=== PATIENT | male | born 1950 | race African-American/Black ===

== ENCOUNTER 2017-01-22 08:03 | Emergency (ER) | payer OTHER ==
[2017-01-22 08:07] VITALS: BP 143/76; PULSE 80; TEMP 97.6; BMI 41.3
--- NOTE | 2017-01-22 09:41 | PDOC ---
History of Present Illness - General Chief Complaint: Pain, Acute Stated Complaint: FALL/ RT KNEE PAIN Time Seen by Provider: 01/22/17 08:22 - History of Present Illness Initial Comments: 01/22/17 08:23 Pt. is a 66 y/o M presenting with a old abrasion to the ED for evaluation. Pt states that he fell approximately one month ago and had a scraped knee. The scrape then developed into a soft mass on his R knee. He presents today because it is more irritating than it has been. Denies pain, drainage from the wound, fevers, chills, redness around the area. Past History - Past Medical History Allergies/Adverse Reactions: Allergies Allergy/AdvReac Type Severity Reaction Status Date / Time No Known Drug Allergies Allergy Verified 01/22/17 08:07 Home Medications: Ambulatory Orders Amlodipine Besylate [Norvasc -] 2.5 mg PO HS 03/09/14 Atorvastatin Ca [Lipitor] 20 mg PO HS 03/09/14 Ramipril 10 mg PO HS 03/09/14 Albuterol Sulfate [Proair Hfa -] 1 - 2 inh PO PRN PRN 05/20/14 Ipratropium [place] [Atrovent Hfa] 12.9 gm IH PRN PRN 10/26/14 Aspirin [ASA -] 81 mg PO DAILY #0 05/05/15 Budesonide/Formeterol Fumarate [SYMBICORT 160/4.5mcg -] 1 inh IH PRN PRN Anemia: No Asthma: Yes Cancer: No Cardiac Disorders: Yes (ASHD, [place]) CVA: No COPD: Yes CHF: No Dementia: No Diabetes: Yes GI Disorders: No (COLON POLYPS,DIVERTICULOSIS,DIVERTICULITIS) Disorders: No HTN: Yes Hypercholesterolemia: Yes Liver Disease: No Seizures: No Thyroid Disease: No - Surgical History Abdominal Surgery: Yes (UMBILICAL HERNIA REPAIR,FISTULA RESECTION) Appendectomy: No Cardiac Surgery: No (CARDIAC CATHERIZATION-SEVERAL TIMES) Cholecystectomy: No Lung Surgery: No Neurologic Surgery: No Orthopedic Surgery: Yes (ELVIRA HIP SUIRGERY; ARTHROSCOPIC LEFT KNEE) - Immunization History Immunization Up to Date: Yes - Psycho/Social/Smoking Cessation Hx Anxiety: No Suicidal Ideation: No Smoking Status: No Smoking History: Never smoked Have you smoked in the past 12 months: No Number of Cigarettes Smoked Daily: 0 If you are a former smoker, when did you quit?: OVER 20 YRS AGO Information on smoking cessation initiated: No Hx Alcohol Use: No Drug/Substance Use Hx: No Substance Use Type: None Hx Substance Use Treatment: Yes *Physical Exam - Vital Signs Last Vital Signs Temp Pulse Resp BP Pulse Ox 97.6 F 80 18 143/76 99 01/22/17 08:05 01/22/17 08:05 01/22/17 08:05 01/22/17 08:05 01/22/17 08:05 - Physical Exam General Appearance: Yes: Appropriately Dressed, Mild Distress Vascular Pulses: Dorsalis-Pedis (R): 2+, Doralis-Pedis (L): 2+ Musculoskeletal: positive: Normal Inspection. negative: Decreased Range of Motion Extremity: positive: Normal Capillary Refill, Normal Range of Motion, Tender (1 cm semi-fluctuant soft tissue mass) Integumentary: positive: Normal Color, Dry, Warm, Other (1 cm round semi- fluctuant soft tissue mass on the R knee) Neurologic: positive: Fully Oriented, Alert, Normal Mood/Affect, Normal Response , Motor Strength 5/5 Medical Decision Making - Medical Decision Making 01/22/17 09:00 18 gauge needle used to aspirate the semifluctuant mass. Less than 1 cm of serous fluid drained. Sent for culture. Wound decompressed and keloid remains. Pt. states he feels better and is ready for discharge. Understands discharge instructions and told to f/u with PCP. *DC/Admit/Observation/Transfer Diagnosis at time of Disposition: Granulation tissue - Discharge Dispostion Admit: No - Referrals Referrals: Mireya Dupont MD [Primary Care Provider] - - Patient Instructions Printed Discharge Instructions: DI for Keloid Additional Instructions: You have a new keloid on your Right knee. There was an area that was drained, and a culture was taken. If the culture shows any bacterial growth, you will receive a phone call. Keep the area covered with a bandaid to prevent the skin from rubbing on your pants. You may use 1% hydrocortisone cream after three days have passed to try and lessen the keloid. If you develop new fevers, chills , redness around the area, puss like discharge, return to the ED.
== END 2017-01-22 09:45 | disposition home or self-care (01) ==
LOC: JERFT 08:03
PROC: 0S9C3ZZ Drainage of Right Knee Joint, Percutaneous Approach (ICD-10-PCS; principal; 2017-01-22)
DX: L92.8 Other granulomatous disorders of the skin and subcutaneous tissue (principal); L91.0 Hypertrophic scar
CPT/HCPCS: 10160; 87070; 87205; 99281-25

== ENCOUNTER 2017-02-04 08:22 | Observation (INO) | payer OTHER ==
--- NOTE | 2017-02-04 08:57 | PDOC ---
History of Present Illness - General History Source: Patient Exam Limitations: No Limitations - History of Present Illness Initial Comments: 02/04/17 10:19 The patient is a 66 year old male, with a significant past medical history of ASHD, CAD, [place], HTN, HLD, Asthma, COPD, Diabetes, Diverticulitis who presents to the ED with dizziness, headache and unsteady gait for the past three days. The patient states his dizziness first began three months ago, intermittent, which he describes as the room spinning. Today, the patient states his dizziness returned 3 days ago however has remained constant today. Patient state it lasted for an hour with associated diffuse headache and unsteady gait. Patient reports his headache is exacerbated upon lifting his head however denies any tingling, numbness, light/sound sensitivity, thunderclap headache. Patient denies any recent head trauma, nausea or vomiting. He denies chest pain, fever, chills, diarrhea or constipation. He denies dysuria, frequency, urgency or hematuria. Patient has not visited his PCP however presents to the ED for further evaluation. Allergies: NKA Past surgical history: Umbilical hernia repair, Fistula resection, hip/shoulder surgery, cardiac catheterization Social history: Former smoker. Former EtOH user. PCP: Dr. Mireya Thompson <Joya Mar - Last Filed: 02/04/17 12:07> - General History Source: Patient Exam Limitations: No Limitations <Ashley Barroso - Last Filed: 02/05/17 08:40> - General Chief Complaint: Lightheaded Stated Complaint: LIGHTHEADED, BLURRY VISION Time Seen by Provider: 02/04/17 08:30 Past History <Joya Mar - Last Filed: 02/04/17 12:07> - Past Medical History Anemia: No Asthma: Yes Cancer: No Cardiac Disorders: Yes ([place]HD, [place]) CVA: No COPD: Yes CHF: No Dementia: No Diabetes: Yes GI Disorders: No (COLON POLYPS,DIVERTICULOSIS,DIVERTICULITIS) Disorders: No HTN: Yes Hypercholesterolemia: Yes Liver Disease: No Seizures: No Thyroid Disease: No - Surgical History Abdominal Surgery: Yes (UMBILICAL HERNIA REPAIR,FISTULA RESECTION) Appendectomy: No Cardiac Surgery: No (CARDIAC CATHERIZATION-SEVERAL TIMES) Cholecystectomy: No Lung Surgery: No Neurologic Surgery: No Orthopedic Surgery: Yes (ELVIRA HIP SUIRGERY; ARTHROSCOPIC LEFT KNEE) - Immunization History Immunization Up to Date: Yes - Psycho/Social/Smoking Cessation Hx Anxiety: No Suicidal Ideation: No Smoking Status: No Smoking History: Former smoker Have you smoked in the past 12 months: No Number of Cigarettes Smoked Daily: 0 If you are a former smoker, when did you quit?: OVER 20 YRS AGO Information on smoking cessation initiated: No Hx Alcohol Use: No Drug/Substance Use Hx: No Substance Use Type: None Hx Substance Use Treatment: Yes <Ashley Barroso - Last Filed: 02/05/17 08:40> - Past Medical History Allergies/Adverse Reactions: Allergies Allergy/AdvReac Type Severity Reaction Status Date / Time No Known Drug Allergies Allergy Verified 02/04/17 08:24 Home Medications: Ambulatory Orders Amlodipine Besylate [Norvasc -] 2.5 mg PO HS 03/09/14 Atorvastatin Ca [Lipitor] 20 mg PO HS 03/09/14 Ramipril 10 mg PO HS 03/09/14 Albuterol Sulfate [Proair Hfa -] 1 - 2 inh PO PRN PRN 05/20/14 Ipratropium [place] [Atrovent Hfa] 12.9 gm IH PRN PRN 10/26/14 Aspirin [ASA -] 81 mg PO DAILY #0 05/05/15 Budesonide/Formeterol Fumarate [SYMBICORT 160/4.5mcg -] 1 inh IH PRN PRN Review of Systems - Review of Systems Able to Perform ROS?: Yes Comments:: 02/04/17 10:19 GENERAL/CONSTITUTIONAL: No: fever, chills, weakness, loss of appetite. HEAD, EYES, EARS, NOSE AND THROAT: No: change in vision, ear pain, discharge, sore throat, throat swelling. CARDIOVASCULAR: No: chest pain, lightheadedness, palpitations, syncope RESPIRATORY: No: cough, shortness of breath, wheezing, hemoptysis, stridor. GASTROINTESTINAL: No: nausea, vomiting, abdominal cramping, diarrhea, rectal bleeding, constipation. GENITOURINARY: No: dysuria, hematuria, frequency, urgency, flank pain. MUSCULOSKELETAL: No: back pain, neck pain, joint pain, muscle swelling or pain SKIN: No: lesions, pallor, rash or easy bruising. NEUROLOGIC: + headache, vertigo, unsteady gait. No: paresthesias, weakness ENDOCRINE: No: unexplained weight gain or loss HEMATOLOGIC/LYMPHATIC: No: anemia, easy bleeding, swelling nodes <Joya Mar - Last Filed: 02/04/17 12:07> *Physical Exam - Vital Signs Last Vital Signs Temp Pulse Resp BP Pulse Ox 97.9 F 91 H 18 147/85 100 02/04/17 08:25 02/04/17 08:25 02/04/17 08:25 02/04/17 08:25 02/04/17 08:25 - Physical Exam Comments: 02/04/17 10:19 GENERAL: The patient is in no acute distress. HEAD: Normal with no signs of trauma. EYES: PERRLA, EOMI, sclera anicteric, conjunctiva clear. ENT: Ears normal, nares patent, oropharynx clear without exudates. Moist mucous membranes. NECK: Normal range of motion, supple without lymphadenopathy, JVD, or masses. LUNGS: Breath sounds equal, clear to auscultation bilaterally. No wheezes, and no crackles. HEART:Regular rate and rhythm, normal S1 and S2 without murmur, rub or gallop. ABDOMEN: Soft, nontender, normoactive bowel sounds. No guarding, no rebound. EXTREMITIES: Normal range of motion, no edema. No clubbing or cyanosis. No erythema, or tenderness. NEUROLOGICAL: Cranial nerves II through XII grossly intact. Normal speech. No focal neurological deficits. MUSCULOSKELETAL: Back nontender to palpation, no CVA tenderness SKIN: Warm, Dry, normal turgor, no rashes or lesions noted. <Joya Mar - Last Filed: 02/04/17 12:07> - Vital Signs Last Vital Signs Temp Pulse Resp BP Pulse Ox 97.9 F 91 H 18 147/85 100 02/04/17 08:25 02/04/17 08:25 02/04/17 08:25 02/04/17 08:25 02/04/17 08:25 <Ashley Barroso - Last Filed: 02/05/17 08:40> Heart Score/ECG Review #1 ECG reviewed & interpreted by me at: 11:48 02/04/17 11:48 Twelve-lead EKG was performed and reviewed by me. There is normal sinus rhythm with a normal rate of 85bpm. The axis is normal. The intervals are normal - pr: 200ms, QRS: 88ms, QTc:406ms. There are no ST or T wave abnormalities. <Ashley Barroso - Last Filed: 02/05/17 08:40> ED Treatment Course - LABORATORY CBC & Chemistry Diagram: 02/04/17 09:07 02/04/17 09:07 - ADDITIONAL ORDERS Additional order review: Laboratory Results 02/04/17 02/04/17 02/04/17 09:07 09:07 08:55 Sodium 140 Potassium 4.2 Chloride 106 Carbon Dioxide 25 Anion Gap 9 BUN 20 H D Creatinine 1.0 D Creat Clearance w eGFR > 60 POC Glucometer 127.02485 Random Glucose 105 Calcium 8.8 Total Bilirubin 0.4 D AST 15 D ALT 18 Alkaline Phosphatase 94 Creatine Kinase 261 CK-MB (CK-2) Rel Index Cancelled Troponin I < 0.02 Total Protein 7.6 Albumin 3.8 02/04/17 02/04/17 09:07 08:55 RBC 4.05 MCV 91.1 MCHC 31.6 L RDW 14.0 MPV 7.4 L Neutrophils % 73.6 Lymphocytes % 18.2 D Monocytes % 7.6 Eosinophils % 0.3 Basophils % 0.3 POC Glucometer 127.10177 <Joya Mar - Last Filed: 02/04/17 12:07> - LABORATORY CBC & Chemistry Diagram: 02/05/17 06:00 02/05/17 06:00 - RADIOLOGY Radiology Studies Ordered: Category Date Time Status HEAD CT WITHOUT CONTRAST [CT] Stat CT Scan 02/04/17 08:55 Ordered <Ashley Barroso - Last Filed: 02/05/17 08:40> Medical Decision Making - Medical Decision Making 02/04/17 12:[address] Impression: Mild volume loss and ventricular dilatation without evidence of acute intracranial pathology. Minimal right ethmoid chronic sinusitis. Right mastoid effusion Reported By: Chaparro Sharma MD 02/04/17 0935 <Joya Mar - Last Filed: 02/04/17 12:07> - Medical Decision Making 02/04/17 08:57 A portion of this note was documented by scribe services under my direction. I have reviewed the details of the note, within reason, and agree with the documentation with the following case summary and management plan written by me. Nursing documentation reviewed and incorporated into medical decision making This is a 66 yo M h/o ASHD, CAD, [place], HTN, HLD, Asthma, COPD, Diabetes, Diverticulitis who presents to the ED with dizziness, headache and unsteady gait for the past three days. Symptoms began 3 months ago, self resolved after several hours Three days ago, it happened again He denies upper respiratory illness He denies head trauma He denies tinnitus (+) headache Symptoms worsen with lifting head DD: BPV, posterior circulation CVA, ICH mass/bleed, sinusitis Laboratory Tests 02/04/17 02/04/17 09:07 09:07 WBC 6.5 Hgb 11.7 Hct 36.9 Plt Count 312 Neutrophils % 73.6 Lymphocytes % 18.2 D BUN 20 H D Creatinine 1.0 D Random Glucose 105 Creatine Kinase 261 Creatine Kinase Index 1.5 CK-MB (CK-2) 3.782 H Troponin I < 0.02 02/04/17 10:38 Upon re assessment, pt states he feels better He feels unstable when he walks 02/04/17 10:39 02/04/17 11:39 Upon re assessment Pt states he has not improved his gait still is/feels unsteady 02/04/17 12:[address] soto Pt will be placed on observation <Ashley Barroso - Last Filed: 02/05/17 08:40> *DC/Admit/Observation/Transfer - Attestations Scribe Attestion: 02/04/17 10:19 Documentation prepared by Joya Mar, acting as er medical technician for Ashley Barroso MD/DO. <Joya Mar - Last Filed: 02/04/17 12:07> - Discharge Dispostion Admit: Yes <Ashley Barroso - Last Filed: 02/05/17 08:40> Diagnosis at time of Disposition: Vertigo - Discharge Dispostion Condition at time of disposition: Stable - Referrals
[2017-02-04 09:20] LABS: BASOPHIL 0.3 % (0-2.0); EOSINOPHIL 0.3 % (0-4.5); MCH 28.8 pg (25.7-33.7); MCHC 31.6 g/dl (32.0-35.9); MEAN CELL VOLUME 91.1 fl (80-96); MEAN PLT VOLUME 7.4 fl (7.5-11.1); NEUTROPHILS 73.6 % (42.8-82.8); PLATELET COUNT 312 K/MM3 (134-434); WHITE BLOOD COUNT 6.5 K/mm3 (4.0-10.0)
[2017-02-04 09:53] LABS: ALBUMIN 3.8 g/dl (3.4-5.0); ANION GAP 9 (8-16); BILIRUBIN,TOTAL 0.4 mg/dL (0.2-1.0); CALCIUM 8.8 mg/dL (8.5-10.1); CO2 25 mmol/L (21-32); COCKROFT - GAULT 124.73; GLUCOSE,RANDOM 105 mg/dL (74-106); SGOT/AST 15 U/L (15-37); SGPT/ALT 18 U/L (12-78); TOT PROT 7.6 g/dl (6.4-8.2)
[2017-02-04 09:55] LABS: ALK PHOS 94 U/L (45-117); TROPONIN I < 0.02 ng/ml (0.00-0.05)
[2017-02-04] MEDS ORDERED: MECLIZINE HCL 25 MG TABLET (FP) PO ONE (10:00)
--- NOTE | 2017-02-04 12:00 | HP ---
[id number] male with a significant past medical history of hypertension, hyperlipidemia, coronary artery disease, type 2 diabetes, who presents to the emergency department complaining of several days of "dizziness." It began 3 days ago, and has been intermittent. He describes the "dizziness" as "the room moving." It occurs for seconds to a minute, and then resolves spontaneously. It is exclusively associated with movements of his head or changes in position. It does not occur when he is at rest. He denies associated nausea or vomiting. He does clearly say that he has been "walking unsteadily" for the past 24 hours. Prior to that, he did not have any gait abnormalities. But for the past 24 hours he states that he feels "unsteady on his feet." When he ambulates, he does say that the gait unsteadiness is accompanied by a feeling of "dizziness." He states that even if he walks for 5 minutes, he continues to have gait instability and dizziness. He denies difficulty swallowing, difficulty speaking, double vision. He denies extremity weakness or paresthesias. He denies any loss of consciousness. He denies new medications. He denies previous history of vertigo, syncope. He states that for the past few weeks he has had "an itchy right ear." He also states that he has had intermittent right sided posterior, mild headaches. He denies fever, chills, sweats. He denies rhinorrhea, cough, sneezing. He denies any hearing loss or changes in his acuity of hearing ER course was notable for: (1) Head CT without acute intracranial abnormality but with minimal chronic right ethmoid sinusitis and mastoid sinus effusion (2) EKG without significant abnormalities (3) Symptpm improvement after Meclizine. PAST MEDICAL HISTORY Hypertension, hyperlipidemia, coronary artery disease Type 2 diabetes, asthma/COPD Social History: Smoking: No Alcohol: No Drugs: No Family History: Allergies No Known Drug Allergies Allergy (Verified 02/04/17 08:24) HOME MEDICATIONS: Home Medications Medication Instructions Recorded Amlodipine Besylate [Norvasc -] 2.5 mg PO HS 03/09/14 Atorvastatin Ca [Lipitor] 20 mg PO HS 03/09/14 Ramipril 10 mg PO HS 03/09/14 Albuterol Sulfate [Proair Hfa -] 1 - 2 inh PO PRN PRN 05/20/14 Ipratropium [place] [Atrovent Hfa] 12.9 gm IH PRN PRN 10/26/14 Aspirin [ASA -] 81 mg PO DAILY #0 05/05/15 Budesonide/Formeterol Fumarate 1 inh IH PRN PRN 05/05/15 [SYMBICORT 160/4.5mcg -] REVIEW OF SYSTEMS CONSTITUTIONAL: Absent: fever, chills, diaphoresis, generalized weakness, malaise, loss of appetite, weight change HEENT: Present: Itching in his right ear Absent: rhinorrhea, nasal congestion, throat pain, throat swelling, difficulty swallowing, mouth swelling, ear pain, eye pain, visual changes CARDIOVASCULAR: Absent: chest pain, syncope, palpitations, irregular heart rate, lightheadedness , peripheral edema RESPIRATORY: Absent: cough, shortness of breath, dyspnea with exertion, orthopnea, wheezing, stridor, hemoptysis GASTROINTESTINAL: Absent: abdominal pain, abdominal distension, nausea, vomiting, diarrhea, constipation, melena, hematochezia GENITOURINARY: Absent: dysuria, frequency, urgency, hesitancy, hematuria, flank pain, genital pain MUSCULOSKELETAL: Absent: myalgia, arthralgia, joint swelling, back pain, neck pain SKIN: Absent: rash, itching, pallor HEMATOLOGIC/IMMUNOLOGIC: Absent: easy bleeding, easy bruising, lymphadenopathy, frequent infections ENDOCRINE: Absent: unexplained weight gain, unexplained weight loss, heat intolerance, cold intolerance NEUROLOGIC: Present: See history of present illness Absent: focal weakness or paresthesias, seizure, mental status changes, bladder or bowel incontinence PSYCHIATRIC: Absent: anxiety, depression, suicidal or homicidal ideation, hallucinations. PHYSICAL EXAMINATION Vital Signs - 24 hr 02/04/17 08:25 Temperature 97.9 F Pulse Rate 91 H Respiratory 18 Rate Blood Pressure 147/85 O2 Sat by Pulse 100 Oximetry (%) GENERAL: Awake, alert, and fully oriented, in no acute distress. HEAD: Normal with no signs of trauma. EYES: Pupils equal, round and reactive to light, extraocular movements intact, sclera anicteric, conjunctiva clear. No lid lag. EARS, NOSE, THROAT: Ears normal, nares patent, oropharynx clear without exudates. Moist mucous membranes. NECK: Normal range of motion, supple without lymphadenopathy, JVD, or masses. LUNGS: Breath sounds equal, clear to auscultation bilaterally. No wheezes, and no crackles. No accessory muscle use. HEART: Regular rate and rhythm, normal S1 and S2 without murmur, rub or gallop. ABDOMEN: Soft, nontender, not distended, normoactive bowel sounds, no guarding, no rebound, no masses. No hepatomegaly or splenomegaly. MUSCULOSKELETAL: Normal range of motion at all joints. No bony deformities or tenderness. No CVA tenderness. UPPER EXTREMITIES: 2+ pulses, warm, well-perfused. No cyanosis. No clubbing. No peripheral edema. LOWER EXTREMITIES: 2+ pulses, warm, well-perfused. No calf tenderness. No peripheral edema. NEURO: Alert, awake, appropriate. Cranial nerves 2-12 intact. No deficits to light touch and temperature in face, upper extremities and lower extremities. No motor deficits in the in face, upper extremities and lower extremities. No pronator drift. Normoreflexic in the upper and lower extremities. Normal speech. Toes are down-going bilaterally. Gait is normal without ataxia (though subjectively unsteady). No dysmetria. No dysdiadochokinesis. No skew deviation. No abnormal nystagmus. Rhomberg is weakly+. Head thrust test is + on right. Dixs-Hallpike test is + on right. PSYCHIATRIC: Cooperative. Good eye contact. Appropriate mood and affect. SKIN: Warm, dry, normal turgor, no rashes or lesions noted, normal capillary refill. Laboratory Results - last 24 hr 02/04/17 02/04/17 02/04/17 08:55 09:07 09:07 WBC 6.5 RBC 4.05 Hgb 11.7 Hct 36.9 MCV 91.1 MCHC 31.6 L RDW 14.0 Plt Count 312 MPV 7.4 L Neutrophils % 73.6 Lymphocytes % 18.2 D Monocytes % 7.6 Eosinophils % 0.3 Basophils % 0.3 Sodium 140 Potassium 4.2 Chloride 106 Carbon Dioxide 25 Anion Gap 9 BUN 20 H D Creatinine 1.0 D Creat Clearance w eGFR > 60 POC Glucometer 127.03201 Random Glucose 105 Calcium 8.8 Total Bilirubin 0.4 D AST 15 D ALT 18 Alkaline Phosphatase 94 Creatine Kinase 261 Creatine Kinase Index 1.5 CK-MB (CK-2) 3.782 H CK-MB (CK-2) Rel Index Troponin I < 0.02 Total Protein 7.6 Albumin 3.8 02/04/17 09:07 WBC RBC Hgb Hct MCV MCHC RDW Plt Count MPV Neutrophils % Lymphocytes % Monocytes % Eosinophils % Basophils % Sodium Potassium Chloride Carbon Dioxide Anion Gap BUN Creatinine Creat Clearance w eGFR POC Glucometer Random Glucose Calcium Total Bilirubin AST ALT Alkaline Phosphatase Creatine Kinase Creatine Kinase Index CK-MB (CK-2) CK-MB (CK-2) Rel Index Cancelled Troponin I Total Protein Albumin ASSESSMENT/PLAN: The patient is a 66-year-old male with a significant past medical history and prehospital course as above, who was being placed on observation for further evaluation and treatment of his "dizziness." His dizziness seems vertiginous and not pre-syncopal or due to dysequilibrium. His positive Romberg is indicative of some disequilibrium, but I suspect that this is chronic, and not the etiology of his present complaint. His positive Shaun-Hallpike on the right, positive head thrust on the right, and evidence of sinus disease on the right all support peripheral vertigo due to BPPV. He has no physical examination stigmata of central vertigo. However, the gait instability is not consistent with benign paroxysmal positional vertigo. NEUROLOGY/ENT -Vertigo I suspect this is peripheral vertigo Will obtain neurology consult Will obtain MRI to rule out possible central causes including posterior circulation CVA Of note, his NIH stroke scale is 0 and he is well outside the 3 and 4.5 hourn windows for TPA Will treat with Meclizine 25mg TID and Zofran 4mg IV Q8hrs prn -Chronic ethmoid sinusitis and right mastoid effusion He does not have clinical evidence of acute bacterial sinusitis or of acute bacterial mastoiditis However, symptoms can be minimal with ethmoid sinusitis Will treat with Claritin 10mg Qday and Flonase BID Will treat with Augmentin 875mg BID for 10 - 14 days He will need close ENT outpatient follow-up to document resolution CARDIOVASCULAR HTN, HLP, CAD No acute issues Will continue home medications QTc was normal on admission so use of Zofran is not contraindicated ENDOCRINE DM No acute issues ISS ASTHMA/COPD No acute issues Will continue home medications FEN Low sodium diet D5/1/2NS @ 150ml/hr until he is eating PROPHYLAXIS Anticipate short stay SCDs He should be able to eat DISPO Anticipate dc tomorrow pending further evaluation Visit type - Emergency Visit Emergency Visit: Yes Care time: The patient presented to the Emergency Department on the above date and was hospitalized for further evaluation of their emergent condition. - New Patient This patient is new to me today: Yes Date on this admission: 02/04/17 - Critical Care Critical Care patient: No
[2017-02-04] MEDS ORDERED: MECLIZINE HCL 25 MG TABLET (FP) PO PRN (12:30)
[2017-02-04] MEDS ORDERED: DEXTROSE 5%-0.45% SALINE 1,000 ML IV SCH (12:30)
[2017-02-04] MEDS ORDERED: ONDANSETRON 4 MG/2 ML VIAL IVPB PRN (12:30)
[2017-02-04] MEDS ORDERED: FLUTICASONE PROP 0.05% 16 GM NASAL SPRAY NS ONE (12:30)
[2017-02-04] MEDS ORDERED: LORATADINE 10 MG TABLET PO ONE (12:30)
[2017-02-04] MEDS ORDERED: ALBUTEROL SO4 0.083% IH SOL 2.5 MG/3 ML VIAL.NEB. NEB PRN (12:33)
[2017-02-04] MEDS ORDERED: PATIENT'S OWN MEDICATION (NON-FORMULARY) (Ipratropium Bromide [Atrovent Hfa] 12.9 GM) IH PRN (12:33)
--- NOTE | 2017-02-04 14:36 | CONSULT ---
Consult - text type - Consultation Consultation Note: Neurology The patient is a 66 year old male, with a significant past medical history of ASHD, CAD, [place], HTN, HLD, Asthma, COPD, Diabetes, Diverticulitis who presents to the ED with dizziness, headache and unsteady gait for the past three days. The patient states his dizziness first began three months ago, intermittent, which he describes as the room spinning. Today, the patient states his dizziness returned 3 days ago however has remained constant today. Patient state it lasted for an hour with associated diffuse headache and unsteady gait. He does report there has been some improvement in symptoms while being in the ER and receiving fluids. CT head completed and no acute changes noted. He has been ordered for MRI brain to rule out CVA. Past History - Past Medical History Anemia: No Asthma: Yes Cancer: No Cardiac Disorders: Yes (ASHD, [place]) CVA: No COPD: Yes CHF: No Dementia: No Diabetes: Yes GI Disorders: No (COLON POLYPS,DIVERTICULOSIS,DIVERTICULITIS) Disorders: No HTN: Yes Hypercholesterolemia: Yes Liver Disease: No Seizures: No Thyroid Disease: No - Surgical History Abdominal Surgery: Yes (UMBILICAL HERNIA REPAIR,FISTULA RESECTION) Appendectomy: No Cardiac Surgery: No (CARDIAC CATHERIZATION-SEVERAL TIMES) Cholecystectomy: No Lung Surgery: No Neurologic Surgery: No Orthopedic Surgery: Yes (ELVIRA HIP SUIRGERY; ARTHROSCOPIC LEFT KNEE) - Immunization History Immunization Up to Date: Yes - Psycho/Social/Smoking Cessation Hx Anxiety: No Suicidal Ideation: No Smoking Status: No Smoking History: Former smoker Have you smoked in the past 12 months: No Number of Cigarettes Smoked Daily: 0 If you are a former smoker, when did you quit?: OVER 20 YRS AGO Information on smoking cessation initiated: No Hx Alcohol Use: No Drug/Substance Use Hx: No Substance Use Type: None Hx Substance Use Treatment: Yes - Past Medical History Allergies/Adverse Reactions: Allergies Allergy/AdvReac Type Severity Reaction Status Date / Time No Known Drug Allergies Allergy Verified 02/04/17 08:24 Home Medications: Ambulatory Orders Amlodipine Besylate [Norvasc -] 2.5 mg PO HS 03/09/14 Atorvastatin Ca [Lipitor] 20 mg PO HS 03/09/14 Ramipril 10 mg PO HS 03/09/14 Albuterol Sulfate [Proair Hfa -] 1 - 2 inh PO PRN PRN 05/20/14 Ipratropium [place] [Atrovent Hfa] 12.9 gm IH PRN PRN 10/26/14 Aspirin [ASA -] 81 mg PO DAILY #0 05/05/15 Budesonide/Formeterol Fumarate [SYMBICORT 160/4.5mcg -] 1 inh IH PRN PRN Review of Systems GENERAL/CONSTITUTIONAL: No: fever, chills, weakness, loss of appetite. HEAD, EYES, EARS, NOSE AND THROAT: No: change in vision, ear pain, discharge, sore throat, throat swelling. CARDIOVASCULAR: No: chest pain, lightheadedness, palpitations, syncope RESPIRATORY: No: cough, shortness of breath, wheezing, hemoptysis, stridor. GASTROINTESTINAL: No: nausea, vomiting, abdominal cramping, diarrhea, rectal bleeding, constipation. GENITOURINARY: No: dysuria, hematuria, frequency, urgency, flank pain. MUSCULOSKELETAL: No: back pain, neck pain, joint pain, muscle swelling or pain SKIN: No: lesions, pallor, rash or easy bruising. NEUROLOGIC: + headache, vertigo, unsteady gait. No: paresthesias, weakness ENDOCRINE: No: unexplained weight gain or loss HEMATOLOGIC/LYMPHATIC: No: anemia, easy bleeding, swelling nodes *Physical Exam Last Vital Signs Temp Pulse Resp BP Pulse Ox 97.6 F 78 16 131/78 96 02/04/17 14:28 02/04/17 14:28 02/04/17 14:28 02/04/17 14:28 02/04/17 14:28 GENERAL: The patient is in no acute distress. HEAD: Normal with no signs of trauma. EYES: PERRLA, EOMI, sclera anicteric, conjunctiva clear. ENT: Ears normal, nares patent, oropharynx clear without exudates. Moist mucous membranes. NECK: Normal range of motion, supple without lymphadenopathy, JVD, or masses. LUNGS: Breath sounds equal, clear to auscultation bilaterally. No wheezes, and no crackles. HEART:Regular rate and rhythm, normal S1 and S2 without murmur, rub or gallop. ABDOMEN: Soft, nontender, normoactive bowel sounds. No guarding, no rebound. EXTREMITIES: Normal range of motion, no edema. No clubbing or cyanosis. No erythema, or tenderness. NEUROLOGICAL: Cranial nerves II through XII grossly intact. Normal speech. No focal neurological deficits. Slight antalgia on ambulation. Finger to nose intact, rapid alternating movements normal. MUSCULOSKELETAL: Back nontender to palpation, no CVA tenderness SKIN: Warm, Dry, normal turgor, no rashes or lesions noted. CBCD WBC 6.5 K/mm3 (4.0-10.0) 02/04/17 09:07 RBC 4.05 M/mm3 (4.00-5.60) 02/04/17 09:07 Hgb 11.7 GM/dL (11.7-16.9) 02/04/17 09:07 Hct 36.9 % (35.4-49) 02/04/17 09:07 MCV 91.1 fl (80-96) 02/04/17 09:07 MCHC 31.6 g/dl (32.0-35.9) L 02/04/17 09:07 RDW 14.0 % (11.9-15.9) 02/04/17 09:07 Plt Count 312 K/MM3 (134-434) 02/04/17 09:07 MPV 7.4 fl (7.5-11.1) L 02/04/17 09:07 CMP Sodium 140 mmol/L (136-145) 02/04/17 09:07 Potassium 4.2 mmol/L (3.5-5.1) 02/04/17 09:07 Chloride 106 mmol/L (98-107) 02/04/17 09:07 Carbon Dioxide 25 mmol/L (21-32) 02/04/17 09:07 Anion Gap 9 (8-16) 02/04/17 09:07 BUN 20 mg/dL (7-18) H D 02/04/17 09:07 Creatinine 1.0 mg/dL (0.7-1.3) D 02/04/17 09:07 Creat Clearance w eGFR > 60 (>60) 02/04/17 09:07 Calcium 8.8 mg/dL (8.5-10.1) 02/04/17 09:07 Total Bilirubin 0.4 mg/dL (0.2-1.0) D 02/04/17 09:07 AST 15 U/L (15-37) D 02/04/17 09:07 ALT 18 U/L (12-78) 02/04/17 09:07 Alkaline Phosphatase 94 U/L (45-117) 02/04/17 09:07 Total Protein 7.6 g/dl (6.4-8.2) 02/04/17 09:07 Albumin 3.8 g/dl (3.4-5.0) 02/04/17 09:07 - RADIOLOGY CT head without acute changes Medical Decision Making 66 year old male, with a significant past medical history of ASHD, CAD, [place], HTN , HLD, Asthma, COPD, Diabetes, Diverticulitis who presents to the ED with dizziness, headache and unsteady gait for the past three days. The patient states his dizziness first began three months ago, intermittent, which he describes as the room spinning. Today, the patient states his dizziness returned 3 days ago however has remained constant today. Patient state it lasted for an hour with associated diffuse headache and unsteady gait. He does report there has been some improvement in symptoms while being in the ER and receiving fluids. CT head completed and no acute changes noted. He has been ordered for MRI brain to rule out CVA. PT recommended, fall precautions. Slow head movements, Meclezine PRN as likely BPPV.
[2017-02-04 15:52] VITALS: BMI 39.5
[2017-02-04] MEDS: INSULIN SLIDING SCALE (NOVOLOG) 1 VIAL SQ SCH ×2 (17:10→21:44)
[2017-02-04] MEDS: AMOX TR/POT CLAV 875MG/125MG TABLETS (FP) PO SCH (18:40)
[2017-02-04] MEDS: BUDESONIDE/FORMETEROL FUMARATE 160/4.5 mcg INHALER IH SCH (21:47)
[2017-02-04] MEDS ORDERED: ATORVASTATIN CA 20 MG TABLET (FP) PO SCH (22:00)
[2017-02-04] MEDS ORDERED: RAMIPRIL 5 MG CAPSULE (FP) PO SCH (22:00)
[2017-02-04] MEDS ORDERED: amLODIPine BESYLATE 2.5 MG TABLET (FP) PO SCH (22:00)
--- NOTE | 2017-02-04 22:55 | EKG ---
Test Reason : Blood Pressure : / mmHG Vent. Rate : 085 BPM Atrial Rate : 085 BPM P-R Int : 200 ms QRS Dur : 088 ms QT Int : 342 ms P-R-T Axes : 053 011 071 degrees QTc Int : 406 ms NORMAL SINUS RHYTHM NONSPECIFIC T WAVE ABNORMALITY ABNORMAL ECG WHEN COMPARED WITH ECG OF 17-MAY-2016 11:00, NO SIGNIFICANT CHANGE WAS FOUND Confirmed by JASSON NEGRON MD ([id number]) on 02/04/2017 10:54:43 PM Referred By: Confirmed By:JASSON NEGRON MD
[2017-02-05] MEDS: INSULIN SLIDING SCALE (NOVOLOG) 1 VIAL SQ SCH ×2 (06:13→11:25)
[2017-02-05 07:04] LABS: BASOPHIL 0.5 % (0-2.0); EOSINOPHIL 0.8 % (0-4.5); MCH 29.1 pg (25.7-33.7); MCHC 31.7 g/dl (32.0-35.9); MEAN CELL VOLUME 91.8 fl (80-96); MEAN PLT VOLUME 7.2 fl (7.5-11.1); NEUTROPHILS 63.1 % (42.8-82.8); PLATELET COUNT 286 K/MM3 (134-434); RDW 13.6 % (11.9-15.9)
[2017-02-05 07:30] LABS: COCKROFT - GAULT 151.95; CREATININE 0.8 mg/dL (0.7-1.3)
[2017-02-05] MEDS ORDERED: PT OWN MED DRAWER 7, Y5N ONE (08:12)
[2017-02-05] MEDS: AMOX TR/POT CLAV 875MG/125MG TABLETS (FP) PO SCH (08:17)
[2017-02-05] MEDS ORDERED: FLUTICASONE PROP 0.05% 16 GM NASAL SPRAY NS SCH (10:00)
[2017-02-05] MEDS ORDERED: ASPIRIN 81 MG CHEWABLE TABLETS PO SCH (10:00)
[2017-02-05] MEDS ORDERED: LORATADINE 10 MG TABLET PO SCH (10:00)
[2017-02-05] MEDS: BUDESONIDE/FORMETEROL FUMARATE 160/4.5 mcg INHALER IH SCH (11:18)
--- NOTE | 2017-02-05 12:57 | PN ---
Progress Note (short form) - Note Progress Note: Neurology The patient is a 66 year old male, with a significant past medical history of ASHD, CAD, [place], HTN, HLD, Asthma, COPD, Diabetes, Diverticulitis who presented to the ED with dizziness, headache and unsteady gait for the past three days. The patient stated his dizziness first began three months ago, intermittent, which he describes as the room spinning. CT head completed and no acute changes noted. He has been ordered for MRI brain to rule out CVA and mention of possible ACOM aneurysm of 2.4mm. Recommended MRA head and neck, if aneurysm confirmed then may require Neurosurgical/Neuro-Interventional consult as concern for rupture. Active Medications Albuterol Sulfate (Ventolin 0.083% Nebulizer Soln -) 1 amp NEB Q6H PRN PRN Reason: SHORT OF BREATH/WHEEZING Amlodipine Besylate (Norvasc -) 2.5 mg PO HS [facility] Last Admin: 02/04/17 21:44 Dose: 2.5 mg Amoxicillin/Clavulanate Potassium (Augmentin - 875mg Tablet) 1 tab PO BID@0800, 1730 [facility] Last Admin: 02/05/17 08:17 Dose: 1 tab Aspirin (Asa -) 81 mg PO DAILY [facility] Last Admin: 02/05/17 11:18 Dose: 81 mg Atorvastatin Calcium (Lipitor -) 20 mg PO HS [facility] Last Admin: 02/04/17 21:44 Dose: 20 mg Budesonide/Formoterol Fumarate (Symbicort 160/4.5mcg -) 1 puff IH BID [facility] Last Admin: 02/05/17 11:18 Dose: 1 puff Fluticasone Propionate (Flonase -) 2 spray NS DAILY [facility] Last Admin: 02/05/17 11:19 Dose: 2 sprays Insulin Aspart (Novolog Vial Sliding Scale -) 1 vial SQ ACHS MELANI PRN Reason: Protocol Last Admin: 02/05/17 11:25 Dose: Not Given Loratadine (Claritin -) 10 mg PO DAILY [facility] Last Admin: 02/05/17 11:18 Dose: 10 mg Meclizine HCl (Antivert -) 25 mg PO TID PRN PRN Reason: VERTIGO Non-Formulary Medication (Ipratropium [place] [Atrovent Hfa]) 12.9 gm IH PRN PRN PRN Reason: SHORT OF BREATH/WHEEZING Ondansetron HCl (Zofran Injection) 4 mg IVPB Q6H PRN PRN Reason: NAUSEA AND/OR VOMITING Ramipril (Altace -) 10 mg PO HS [facility] Last Admin: 02/04/17 22:35 Dose: 10 mg *Physical Exam Vital Signs Period Temp Pulse Resp BP Sys/Sanchez Pulse Ox Last 24 Hr 97.6 F-98.3 F 73-84 16-20 131-160/66-89 96-100 GENERAL: The patient is in no acute distress. HEAD: Normal with no signs of trauma. EYES: PERRLA, EOMI, sclera anicteric, conjunctiva clear. ENT: Ears normal, nares patent, oropharynx clear without exudates. Moist mucous membranes. NECK: Normal range of motion, supple without lymphadenopathy, JVD, or masses. LUNGS: Breath sounds equal, clear to auscultation bilaterally. No wheezes, and no crackles. HEART:Regular rate and rhythm, normal S1 and S2 without murmur, rub or gallop. ABDOMEN: Soft, nontender, normoactive bowel sounds. No guarding, no rebound. EXTREMITIES: Normal range of motion, no edema. No clubbing or cyanosis. No erythema, or tenderness. NEUROLOGICAL: Cranial nerves II through XII grossly intact. Normal speech. No focal neurological deficits. Slight antalgia on ambulation. Finger to nose intact, rapid alternating movements normal. MUSCULOSKELETAL: Back nontender to palpation, no CVA tenderness SKIN: Warm, Dry, normal turgor, no rashes or lesions noted. CBCD WBC 6.5 K/mm3 (4.0-10.0) 02/04/17 09:07 RBC 4.05 M/mm3 (4.00-5.60) 02/04/17 09:07 Hgb 11.7 GM/dL (11.7-16.9) 02/04/17 09:07 Hct 36.9 % (35.4-49) 02/04/17 09:07 MCV 91.1 fl (80-96) 02/04/17 09:07 MCHC 31.6 g/dl (32.0-35.9) L 02/04/17 09:07 RDW 14.0 % (11.9-15.9) 02/04/17 09:07 Plt Count 312 K/MM3 (134-434) 02/04/17 09:07 MPV 7.4 fl (7.5-11.1) L 02/04/17 09:07 CMP Sodium 140 mmol/L (136-145) 02/04/17 09:07 Potassium 4.2 mmol/L (3.5-5.1) 02/04/17 09:07 Chloride 106 mmol/L (98-107) 02/04/17 09:07 Carbon Dioxide 25 mmol/L (21-32) 02/04/17 09:07 Anion Gap 9 (8-16) 02/04/17 09:07 BUN 20 mg/dL (7-18) H D 02/04/17 09:07 Creatinine 1.0 mg/dL (0.7-1.3) D 02/04/17 09:07 Creat Clearance w eGFR > 60 (>60) 02/04/17 09:07 Calcium 8.8 mg/dL (8.5-10.1) 02/04/17 09:07 Total Bilirubin 0.4 mg/dL (0.2-1.0) D 02/04/17 09:07 AST 15 U/L (15-37) D 02/04/17 09:07 ALT 18 U/L (12-78) 02/04/17 09:07 Alkaline Phosphatase 94 U/L (45-117) 02/04/17 09:07 Total Protein 7.6 g/dl (6.4-8.2) 02/04/17 09:07 Albumin 3.8 g/dl (3.4-5.0) 02/04/17 09:07 - RADIOLOGY CT head without acute changes MRI brain- No acute changes, possible ACOM aneurysm Medical Decision Making 66 year old male, with a significant past medical history of ASHD, CAD, [place], HTN , HLD, Asthma, COPD, Diabetes, Diverticulitis who presents to the ED with dizziness, headache and unsteady gait for the past three days. The patient states his dizziness first began three months ago, intermittent, which he describes as the room spinning. PT recommended, fall precautions. Slow head movements, Meclezine PRN as likely BPPV. Of greater concern, possible Acom aneurysm and MRA ordered.
--- NOTE | 2017-02-05 14:12 | DS ---
Physical Examination Vital Signs: Vital Signs Temperature 97.9 F 02/05/17 06:00 Pulse Rate 75 02/05/17 06:00 Respiratory Rate 20 02/05/17 06:00 Blood Pressure 134/78 02/05/17 06:00 O2 Sat by Pulse Oximetry (%) 100 02/04/17 15:54 Findings/Remarks: GENERAL: Awake, alert, and fully oriented, in no acute distress. HEAD: Normal with no signs of trauma. LUNGS: Breath sounds equal, clear to auscultation bilaterally. No wheezes, and no crackles. No accessory muscle use. HEART: Regular rate and rhythm, normal S1 and S2 without murmur, rub or gallop. ABDOMEN: Soft, nontender, not distended, normoactive bowel sounds, no guarding, no rebound, no masses. No hepatomegaly or splenomegaly. NEURO: Alert, awake, appropriate. Cranial nerves 2-12 intact. No deficits to light touch and temperature in face, upper extremities and lower extremities. No motor deficits in the in face, upper extremities and lower extremities. No pronator drift. Normoreflexic in the upper and lower extremities. Normal speech. Toes are down-going bilaterally. Gait is normal without ataxia No dysmetria. No dysdiadochokinesis. No skew deviation. No abnormal nystagmus. PSYCHIATRIC: Cooperative. Good eye contact. Appropriate mood and affect. SKIN: Warm, dry, normal turgor, no rashes or lesions noted, normal capillary refill. Labs: CBC, BMP 02/05/17 06:00 02/05/17 06:00 Discharge Summary Reason For Visit: VERTIGO Current Active Problems Vertigo (Acute) Hospital Course: The patient is a 66-year-old male with a significant past medical history of hypertension, hyperlipidemia, coronary artery disease, type 2 diabetes, who presents to the emergency department complaining of several days of "dizziness. " It began 3 days ago, and has been intermittent. He describes the "dizziness " as "the room moving." It occurs for seconds to a minute, and then resolves spontaneously. It is exclusively associated with movements of his head or changes in position. It does not occur when he is at rest. He denies associated nausea or vomiting. He does clearly say that he has been "walking unsteadily" for the past 24 hours. Prior to that, he did not have any gait abnormalities. But for the past 24 hours he states that he feels "unsteady on his feet." When he ambulates, he does say that the gait unsteadiness is accompanied by a feeling of "dizziness." He states that even if he walks for 5 minutes, he continues to have gait instability and dizziness. NEUROLOGY/ENT -Vertigo - Brain MRI with no infarct identified, mild periventricular and subcortical chronic microvascular changes, moderate right mastoid fluid accumulation. The anterior communication artery region appears slightly bulbous which could be artifactual versus possibly representing a 2.4mm aneurysm. - Neck MRA: there is no evidence of hemodynamically significant stenosis at the common carotid bifurcation, bilaterally - Brain MRA: No gross focal stenosis, aneurysm, major artery cutoff or vascular malformation is identified within the central intracranial arterial circulation Of note, his NIH stroke scale is 0 and he is well outside the 3 and 4.5 hourn windows for TPA Will treat with Meclizine 25mg TID and Zofran 4mg IV Q8hrs prn -Chronic ethmoid sinusitis and right mastoid effusion He does not have clinical evidence of acute bacterial sinusitis or of acute bacterial mastoiditis However, symptoms can be minimal with ethmoid sinusitis Will treat with Claritin 10mg Qday and Flonase BID Will treat with Augmentin 875mg BID for 10 - 14 days He will need close ENT outpatient follow-up to document resolution CARDIOVASCULAR HTN, HLP, CAD No acute issues Will continue home medications QTc was normal on admission so use of Zofran is not contraindicated ENDOCRINE DM No acute issues ISS ASTHMA/COPD No acute issues Will continue home medications Condition: Improved - Instructions Diet, Activity, Other Instructions: Please return to the ED with new, persistent, or worsening symptoms. Please follow-up with providers as indicated. Referrals: Mack Prescott MD [Staff Physician] - (Please follow-up with neurology within 1 week for further evaluation of your vertigo) Mireya Dupont MD [Primary Care Provider] - (Please follow-up with pcp within 1 week) Disposition: HOME - Home Medications Comprehensive Discharge Medication List: Ambulatory Orders Amlodipine Besylate [Norvasc -] 2.5 mg PO HS 03/09/14 Atorvastatin Ca [Lipitor] 20 mg PO HS 03/09/14 Ramipril 10 mg PO HS 03/09/14 Albuterol Sulfate [Proair Hfa -] 1 - 2 inh PO PRN PRN 05/20/14 Ipratropium [place] [Atrovent Hfa] 12.9 gm IH PRN PRN 10/26/14 Aspirin [ASA -] 81 mg PO DAILY #0 05/05/15 Budesonide/Formeterol Fumarate [SYMBICORT 160/4.5mcg -] 1 inh IH PRN PRN Amox-Tr/K Cl [Augmentin 875-125mg Tablet -] 1 tab PO BID@0800,1730 #22 tablet Fluticasone Prop 0.05% Nasal [Flonase -] 2 spray NS DAILY #1 spray 02/05/17 Loratadine [Claritin -] 10 mg PO DAILY #30 tablet 02/05/17 Meclizine HCl [Antivert -] 25 mg PO TID PRN #30 tablet 02/05/17 This patient is new to me today: Yes Date on this admission: 03/07/17 Emergency Visit: No Critical Care patient: No - Discharge Referral Referred to [facility] No
[2017-02-05 15:07] VITALS: BP 132/71; PULSE 73; TEMP 98.1
== END 2017-02-05 15:21 | disposition home or self-care (01) ==
LOC: JER 08:22 → JERBED 12:42 → J7W 14:53
PROVIDERS: ADMIT Internal Medicine; ATTEND Registered Nurse
PROC: 3E0337Z Introduction of Electrolytic and Water Balance Substance into Peripheral Vein, Percutaneous Approach (ICD-10-PCS; principal; 2017-02-04)
DX: R42 Dizziness and giddiness (principal); I25.10 Atherosclerotic heart disease of native coronary artery without angina pectoris; I25.2 Old myocardial infarction; I10 Essential (primary) hypertension; E78.5 Hyperlipidemia, unspecified; J45.909 Unspecified asthma, uncomplicated; J44.9 Chronic obstructive pulmonary disease, unspecified; E11.9 Type 2 diabetes mellitus without complications; Z87.19 Personal history of other diseases of the digestive system; Z98.61 Coronary angioplasty status; Z87.891 Personal history of nicotine dependence; Z79.82 Long term (current) use of aspirin
CPT/HCPCS: 36415; 70450-TC; 70546-TC; 70549-TC; 70551-TC; 80048; 80053; 82550; 82553; 84484; 85025; 93005; 93010; 97116-GP; 97161-GP; 99285-25; G0378

== ENCOUNTER 2017-03-20 10:55 | Emergency (ER) | payer OTHER ==
[2017-03-20 11:23] VITALS: BP 127/65; PULSE 83; TEMP 98.1; BMI 40.6
--- NOTE | 2017-03-20 12:11 | PDOC ---
History of Present Illness - General Chief Complaint: Pain, Acute Stated Complaint: KNEE PAIN Time Seen by Provider: 03/20/17 11:29 History Source: Patient Exam Limitations: No Limitations - History of Present Illness Initial Comments: 03/20/17 12:16 CHIEF COMPLAINT: Keloid to right lateral knee HISTORY OF PRESENT ILLNESS: Patient is a 66-year-old male history of hypertension, high cholesterol, right knee injury. Patient was seen here on for scar, daily to right knee however patient states that the keloid is getting "annoying when it rubs against his jeans" there is no erythema, edema, no pain. Good range of motion. Patient requesting for keloid to be evaluated. REVIEW OF SYSTEMS: GENERAL: Afebrile, A&O x3 RESPIRATORY: No cough, wheezing, or hemoptysis. CARDIAC: No CP or SOB MUSCULOSKELETAL: No pain, keloid noted measuring 2 cm in width and 2 cm in length to right lateral knee SKIN : No erythema, no edema, no bruising, no deformity. See above NEUROLOGICAL: Denies any numbness or tingling. PHYSICAL EXAM: GENERAL: The patient is awake, alert, and fully oriented, in no acute distress. HEAD: Normal with no signs of trauma. RESPIRATORY: Lungs clear bilaterally no rhonchi, rales, or wheezes CARDIAC: S1-S2 audible, no murmur rub or gallop EXTREMITIES: Good range of motion to right knee, no fluid appreciated, no bulge sign. No pain to superior or inferior patella. Negative drop test. Negative posterior leg test. No joint laxity noted, no ecchymosis, no deformity, no abrasions ,no edema. +3 popliteal pulse. Negative Homans sign. No calf pain or tenderness, no erythema or edema. MUSCULOSKELETAL: No spinal point tenderness. SKIN: Warm, Dry, normal turgor, no erythema, no edema no bruising. Keloid to right lateral knee. 2 cm x 2 cm Past History - Past Medical History Allergies/Adverse Reactions: Allergies Allergy/AdvReac Type Severity Reaction Status Date / Time No Known Drug Allergies Allergy Verified 02/04/17 08:24 Home Medications: Ambulatory Orders Amlodipine Besylate [Norvasc -] 2.5 mg PO HS 03/09/14 Atorvastatin Ca [Lipitor] 20 mg PO HS 03/09/14 Ramipril 10 mg PO HS 03/09/14 Albuterol Sulfate [Proair Hfa -] 1 - 2 inh PO PRN PRN 05/20/14 Ipratropium [place] [Atrovent Hfa] 12.9 gm IH PRN PRN 10/26/14 Aspirin [ASA -] 81 mg PO DAILY #0 05/05/15 Budesonide/Formeterol Fumarate [SYMBICORT 160/4.5mcg -] 1 inh IH PRN PRN Amox-Tr/K Cl [Augmentin 875-125mg Tablet -] 1 tab PO BID@0800,1730 #22 tablet Fluticasone Prop 0.05% Nasal [Flonase -] 2 spray NS DAILY #1 spray 02/05/17 Loratadine [Claritin -] 10 mg PO DAILY #30 tablet 02/05/17 Meclizine HCl [Antivert -] 25 mg PO TID PRN #30 tablet 02/05/17 Anemia: No Asthma: Yes Cancer: No Cardiac Disorders: Yes (ASHD, [place]) CVA: No COPD: Yes CHF: No Dementia: No Diabetes: Yes GI Disorders: (COLON POLYPS,DIVERTICULOSIS,DIVERTICULITIS) Disorders: No HTN: Yes Hypercholesterolemia: Yes Liver Disease: No Seizures: No Thyroid Disease: No - Surgical History Abdominal Surgery: Yes (UMBILICAL HERNIA REPAIR,FISTULA RESECTION) Appendectomy: No Cardiac Surgery: No (CARDIAC CATHERIZATION-SEVERAL TIMES) Cholecystectomy: No Lung Surgery: No Neurologic Surgery: No Orthopedic Surgery: Yes (ELVIRA HIP SUIRGERY; ARTHROSCOPIC LEFT KNEE) - Immunization History Immunization Up to Date: Yes - Psycho/Social/Smoking Cessation Hx Anxiety: No Suicidal Ideation: No Smoking Status: No Smoking History: Never smoked Have you smoked in the past 12 months: No Number of Cigarettes Smoked Daily: 0 If you are a former smoker, when did you quit?: OVER 20 YRS AGO Information on smoking cessation initiated: No Hx Alcohol Use: No Drug/Substance Use Hx: No Substance Use Type: None Hx Substance Use Treatment: Yes *Physical Exam - Vital Signs Last Vital Signs Temp Pulse Resp BP Pulse Ox 98.1 F 83 18 127/65 96 03/20/17 11:21 03/20/17 11:21 03/20/17 11:21 03/20/17 11:21 03/20/17 11:21 Medical Decision Making - Medical Decision Making 03/20/17 12:22 A/P: 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 Patient referred to dermatology and orthopedics. Patient verbalized understanding. Bandaid applied to area to prevent it from rubbing against his jeans. *DC/Admit/Observation/Transfer Diagnosis at time of Disposition: Keloid of skin - Discharge Dispostion Disposition: HOME Condition at time of disposition: Good Admit: No - Referrals Referrals: Mireya Dupont MD [Primary Care Provider] - Khalif Manzanares MD [Staff Physician] - Juan Mario [Non Staff, Medical] - (dermatology) - Patient Instructions Additional Instructions: Recommend follow up with dermatology for evaluation of keloid.
== END 2017-03-20 12:16 | disposition home or self-care (01) ==
LOC: JERFT 10:55
DX: L91.0 Hypertrophic scar (principal); I10 Essential (primary) hypertension; I25.10 Atherosclerotic heart disease of native coronary artery without angina pectoris; I25.2 Old myocardial infarction; E78.00 Pure hypercholesterolemia, unspecified; J45.909 Unspecified asthma, uncomplicated; J44.9 Chronic obstructive pulmonary disease, unspecified; Z79.82 Long term (current) use of aspirin; Z98.61 Coronary angioplasty status
CPT/HCPCS: 99281-25

== ENCOUNTER 2017-06-18 07:18 | Day surgery (SDC) | payer OTHER ==
[2017-06-17 10:19] VITALS: BMI 41.8
[2017-06-18 07:41] LABS: URINE APPEARANCE CLEAR; URINE BILIRUBIN NEGATIVE (NEGATIVE); URINE BLOOD NEGATIVE (NEGATIVE); URINE COLOR YELLOW; URINE GLUCOSE (UA) NEGATIVE (NEGATIVE); URINE KETONE NEGATIVE (NEGATIVE); URINE LEUK ESTERASE NEGATIVE (NEGATIVE); URINE NITRITE NEGATIVE (NEGATIVE); URINE PROTEIN NEGATIVE (NEGATIVE)
--- NOTE | 2017-06-18 10:05 | HP ---
Satellite H - Chief Complaint Chief Complaint: right knee mass - Past Medical History Allergies/Adverse Reactions: Allergies Allergy/AdvReac Type Severity Reaction Status Date / Time No Known Drug Allergies Allergy Verified 06/18/17 08:18 - Current Medications Current Medications: Home Medications Medication Instructions Recorded Amlodipine Besylate [Norvasc -] 2.5 mg PO DAILY 03/09/14 Atorvastatin Ca [Lipitor] 20 mg PO HS 03/09/14 Ramipril 10 mg PO BID 03/09/14 Albuterol Sulfate [Proair Hfa -] 1 - 2 inh PO PRN PRN 05/20/14 Aspirin [ASA -] 81 mg PO DAILY #0 05/05/15 Budesonide/Formeterol Fumarate 1 inh IH PRN PRN 05/05/15 [SYMBICORT 160/4.5mcg -] Albuterol 0.083% Nebulizer [place] 1 neb NEB PRN PRN 06/18/17 [Ventolin 0.083% Nebulizer Soln -] Albuterol Sulfate Inhaler - 1 - 2 inh PO BID 06/18/17 [Ventolin HFA Inhaler -] Isosorbide Mononitrate [Isosorbide 30 mg PO DAILY 06/18/17 Mononitrate ER] Oxycodone HCl/Acetaminophen 1 - 2 tab PO Q6H #30 tab MDD 8 06/18/17 [Percocet 5-325 mg Tablet -] Sennosides [Senna] 8.6 mg PO PRN PRN 06/18/17 Satellite Physical Exam - Physical Examination Vital Signs: Vital Signs Period Temp Pulse Resp BP Sys/Sanchez Pulse Ox Last 24 Hr 97.8 F-97.8 F 88-88 20-20 143-143/83-83 97 General Appearance: Well Nourished, Well Developed, Alert & Oriented x3 ENT: Clear Lung: Normal air movement Heart: Regular rate & rhythm Extremities: Other (right knee- + mass, nvi) Neurological: Intact, Alert, Oriented Satellite Impression/Plan - Impression/Plan Impression: right knee mass Operative Procedure: right knee mass excision Date to be Performed: 06/18/17
[2017-06-18] MEDS ORDERED: MIDAZOLAM HCL 2 MG/2 ML SINGLE DOSE VIAL ONE (11:19)
[2017-06-18] MEDS ORDERED: PROPOFOL 20 ML ONE (11:23)
[2017-06-18] MEDS ORDERED: LIDOCAINE HCL 0.5% EPINEPHRINE 1:200,000 50 ML VIAL IJ ONE (11:24)
[2017-06-18] MEDS ORDERED: ONDANSETRON 4 MG/2 ML VIAL ONE (11:30)
[2017-06-18 12:43] VITALS: TEMP 98
[2017-06-18 14:17] VITALS: BP 153/73; PULSE 100
--- NOTE | 2017-06-19 08:55 | OP ---
DATE OF OPERATION: 06/18/2017 PREOPERATIVE DIAGNOSIS: Mass, anterior aspect of right knee. POSTOPERATIVE DIAGNOSIS: Mass, anterior aspect of right knee. PROCEDURE: Excision of mass, right knee. SURGICAL ATTENDING: Khalif Manzanares MD ANESTHESIA: Local with IV sedation. COMPLICATIONS: None. CONDITION: To recovery room in stable condition. DESCRIPTION OF OPERATIVE PROCEDURE: Patient taken to the operating room on June 18, 2017. IV sedation was administered by the anesthesiologist. Right lower extremity was prepped and draped in the usual sterile fashion. Lidocaine 1% with epinephrine was infiltrated around the mass which included the skin and the subcutaneous tissue on the anterolateral aspect of the knee, lateral to the patellar tendon. It did not communicate with the knee itself. It was more on the subcutaneous and communicated with the bursa. A horizontal incision was made over it with an ellipse around the mass including the skin. The skin and the full-thickness mass was excised in total down to the level of the subcutaneous tissue and the bursa. It did not communicate with the knee at all. The skin and mass were sent in total to the pathologist for evaluation. The skin was then closed using 3-0 nylon horizontal mattress sutures, closing the ellipse and making a nice horizontal incision. The knee was taken through a range of motion, made sure that there was no undue tension on the repair. A felt pressure dressing was applied. Patient awakened from anesthesia and transferred to recovery in stable condition. KHALIF MANZANARES M.D. [id number]
--- NOTE | 2017-06-19 14:13 | PATH ---
Surgical Pathology Report Patient Name: GUILLERMO HODGSNO [facility]. Rec. #: [id number] /Age/Gender: 1950 (Age: 67) / M Account: [id number] Location: [facility] SURGICAL Taken: 06/18/2017 Received: 06/18/2017 Reported: 06/19/2017 Physicians: Khalif Manzanares M.D. Specimen(s) Received MASS OF RIGHT KNEE Clinical History Right knee mass Final Diagnosis SKIN AND SOFT TISSUE, RIGHT KNEE, MASS, EXCISION: CONSISTENT WITH FIBROLIPOMA. SKIN WITH DERMAL FIBROSIS. Electronically Signed Ortiz Hoang M.D. Gross Description Received in formalin labeled "mass right knee" is a 3.5 x 1.3 cm brown, elliptical portion of skin excised to a depth of 1.0 cm. The epidermal surface is unremarkable. Sectioning reveals edematous underlying soft tissue. Also received within the same container is a 2.2 x 1.6 x 0.4 cm aggregate of arthur-yellow soft tissue fragments. Glassware Maker Demonstrator sections are submitted in 2 cassettes as follows: 1-skin with underlying soft tissue; 2-entirely submitted separately received soft tissue fragments. DL/06/18/2017 saudi06/18/2017
== END 2017-06-18 14:30 | disposition home or self-care (01) ==
LOC: JASU-SURG 07:18
PROVIDERS: ATTEND Orthopaedic Surgery
PROC: 0JBP0ZZ Excision of Left Lower Leg Subcutaneous Tissue and Fascia, Open Approach (ICD-10-PCS; principal; 2017-06-18 10:15)
DX: D21.22 Benign neoplasm of connective and other soft tissue of left lower limb, including hip (principal)
CPT/HCPCS: 81003; 88304-TC; 94760

== ENCOUNTER 2017-12-16 22:48 | Emergency (ER) | payer OTHER ==
[2017-12-16 23:04] VITALS: BP 156/86; PULSE 86; TEMP 98.3; BMI 39.9
[2017-12-17] MEDS ORDERED: ALBUTEROL SO4 2.5/IPRATROPIUM 0.5 INH SOL 3 ML VIAL.NEB. NEB STA ×2 (00:28→00:29)
--- NOTE | 2017-12-17 00:29 | PDOC ---
History of Present Illness - General History Source: Patient Exam Limitations: No Limitations - History of Present Illness Initial Comments: 12/17/17 00:38 The patient is a 67 year old male with a significant PMH of asthma, ASHD, past SD, diverticulosis, HTN, and hyperlipidemia who presents to the emergency department with an asthma exacerbation beginning approximately 7 hours ago. The patient reports feeling tight this evening and notes it is very similar to his previous asthma exacerbations. He reports his asthma is usually well controlled and he does not normally use steroids. The patient denies chest pain. The patient denies headache and dizziness. Denies fever, chills, nausea, vomit, diarrhea and constipation. Denies dysuria, frequency, urgency and hematuria. Allergies: NKDA Past surgical history: Multiple cardiac catheterizations. Umbilical hernia repair. Fistula resection. Bilateral hip surgery. Knee arthroscopy. Social history: Former smoker (quit over 20 years ago). PCP: None reported. <Jack Laguna - Last Filed: 12/17/17 00:40> - General History Source: Patient <Hugo Jonas - Last Filed: 12/17/17 01:26> - General Chief Complaint: Asthma Stated Complaint: ASTHMA Time Seen by Provider: 12/17/17 00:26 Past History <Jack Laguna - Last Filed: 12/17/17 00:40> - Past Medical History Anemia: No Asthma: Yes Cancer: No Cardiac Disorders: Yes (ASHD, [place]) CVA: No COPD: Yes CHF: No Dementia: No Diabetes: Yes GI Disorders: (COLON POLYPS,DIVERTICULOSIS,DIVERTICULITIS) Disorders: No HTN: Yes Hypercholesterolemia: Yes Liver Disease: No Seizures: No Thyroid Disease: No - Surgical History Abdominal Surgery: Yes (UMBILICAL HERNIA REPAIR,FISTULA RESECTION) Appendectomy: No Cardiac Surgery: No (CARDIAC CATHERIZATION-SEVERAL TIMES) Cholecystectomy: No Lung Surgery: No Neurologic Surgery: No Orthopedic Surgery: Yes (ELVIRA HIP SUIRGERY; ARTHROSCOPIC LEFT KNEE) - Immunization History Immunization Up to Date: Yes - Suicide/Smoking/Psychosocial Hx Smoking Status: No Smoking History: Never smoked Have you smoked in the past 12 months: No Number of Cigarettes Smoked Daily: 0 If you are a former smoker, when did you quit?: OVER 20 YRS AGO Information on smoking cessation initiated: No Hx Alcohol Use: No Drug/Substance Use Hx: No Substance Use Type: None Hx Substance Use Treatment: Yes <Hugo Jonas - Last Filed: 12/17/17 01:26> - Past Medical History Allergies/Adverse Reactions: Allergies Allergy/AdvReac Type Severity Reaction Status Date / Time No Known Drug Allergies Allergy Verified 12/16/17 23:04 Home Medications: Ambulatory Orders Amlodipine Besylate [Norvasc -] 2.5 mg PO DAILY 03/09/14 Atorvastatin Ca [Lipitor] 20 mg PO HS 03/09/14 Albuterol Sulfate [Proair Hfa -] 1 - 2 inh PO PRN PRN 05/20/14 Aspirin [ASA -] 81 mg PO DAILY #0 05/05/15 Budesonide/Formeterol Fumarate [SYMBICORT 160/4.5mcg -] 1 inh IH PRN PRN Albuterol 0.083% Nebulizer Merle [Ventolin 0.083% Nebulizer Soln -] 1 neb NEB PRN PRN 06/18/17 Albuterol Sulfate Inhaler - [Ventolin HFA Inhaler -] 1 - 2 inh PO BID 06/18/17 Isosorbide Mononitrate [Isosorbide Mononitrate ER] 30 mg PO DAILY 06/18/17 Etodolac 500 mg PO BID 12/17/17 Review of Systems - Review of Systems Able to Perform ROS?: Yes Comments:: 12/17/17 00:38 CONSTITUTIONAL: Absent: fever, chills, diaphoresis, generalized weakness, malaise, loss of appetite HEENT: Absent: rhinorrhea, nasal congestion, throat pain, throat swelling, difficulty swallowing, mouth swelling, ear pain, eye pain, visual Changes CARDIOVASCULAR: Absent: syncope, palpitations, irregular heart rate, lightheadedness, peripheral edema RESPIRATORY: (+) Shortness of breath with associated tightness. Absent: cough, dyspnea with exertion, orthopnea, wheezing, stridor, hemoptysis GASTROINTESTINAL: Absent: abdominal pain, abdominal distension, nausea, vomiting, diarrhea, constipation, melena, hematochezia GENITOURINARY: Absent: dysuria, frequency, urgency, hesitancy, hematuria, flank pain, genital pain MUSCULOSKELETAL: Absent: myalgia, arthralgia, joint swelling SKIN: Absent: rash, itching, pallor HEMATOLOGIC/IMMUNOLOGIC: Absent: easy bleeding, easy bruising, lymphadenopathy, frequent infections ENDOCRINE: Absent: unexplained weight gain, unexplained weight loss, heat intolerance, cold intolerance NEUROLOGIC: Absent: headache, focal weakness or paresthesias, dizziness, unsteady gait, seizure, mental status changes, bladder or bowel incontinence PSYCHIATRIC: Absent: anxiety, depression, suicidal or homicidal ideation, hallucinations. <Jack Laguna - Last Filed: 12/17/17 00:40> *Physical Exam - Vital Signs Last Vital Signs Temp Pulse Resp BP Pulse Ox 98.3 F 86 24 156/86 98 12/16/17 23:01 12/16/17 23:01 12/16/17 23:01 12/16/17 23:01 12/16/17 23:01 - Physical Exam Comments: 12/17/17 00:38 GENERAL: (+) Morbid obesity. Well developed, well nourished. Awake and alert. No acute distress. HEENT: Normocephalic, atraumatic. PERRLA, EOMI. No conjunctival pallor. Sclera are non- icteric. Moist mucous membranes. Oropharynx is clear. NECK: Supple. Full ROM. No JVD. Carotid pulses 2+ and symmetric, without bruits. No thyromegaly. No lymphadenopathy. CARDIOVASCULAR: Regular rate and rhythm. No murmurs, rubs, or gallops. Distal pulses are 2+ and symmetric. PULMONARY: (+) Scattered wheezing and decreased breath sounds in the mid to posterior lung cid. No conversational dyspnea. No evidence of respiratory distress. Lungs clear to auscultation bilaterally. No wheezing, rales or rhonchi. ABDOMINAL: Soft. Non-tender. Non-distended. No rebound or guarding. No organomegaly. Normoactive bowel sounds. MUSCULOSKELETAL Normal range of motion at all joints. No bony deformities or tenderness. No CVA tenderness. EXTREMITIES: No cyanosis. No clubbing. No edema. No calf tenderness. SKIN: Warm and dry. Normal capillary refill. No rashes. No jaundice. NEUROLOGICAL: Alert, awake, appropriate. Cranial nerves 2-12 intact. No deficits to light touch and temperature in face, upper extremities and lower extremities. No motor deficits in the in face, upper extremities and lower extremities. Normoreflexic in the upper and lower extremities. Normal speech. Toes are downgoing bilaterally. Gait is normal without ataxia. PSYCHIATRIC: Cooperative. Good eye contact. Appropriate mood and affect. <Jack Laguna - Last Filed: 12/17/17 00:40> - Vital Signs Last Vital Signs Temp Pulse Resp BP Pulse Ox 98.3 F 86 24 156/86 98 12/16/17 23:01 12/16/17 23:01 12/16/17 23:01 12/16/17 23:01 12/16/17 23:01 <Hugo Jonas - Last Filed: 12/17/17 01:26> ED Treatment Course - Medications Given in the ED: ED Medications Discontinued Medications Generic Name Dose Route Start Last Admin Trade Name Freq PRN Reason Stop Dose Admin Albuterol/Ipratropium 1 amp 12/17/17 00:28 12/17/17 00:34 Duoneb - NEB 12/17/17 00:29 1 amp ONCE STA Administration <Jack Laguna - Last Filed: 12/17/17 00:40> Medical Decision Making - Medical Decision Making 12/17/17 01:26 Dr. Jonas: The scribe's documentation has been prepared under my direction and personally reviewed by me in its entirery. I confirm that the note above accurately reflects all work, treatment, procedures, and medical decision making performed by me. <Hugo Jonas - Last Filed: 12/17/17 01:26> *DC/Admit/Observation/Transfer - Attestations Scribe Attestion: 12/17/17 00:38 Documentation prepared by Jack Laguna, acting as medical screener for Hugo Jonas DO. <Jack Laguna - Last Filed: 12/17/17 00:40> - Discharge Dispostion Admit: No <Hugo Jonas - Last Filed: 12/17/17 01:26> Diagnosis at time of Disposition: Asthma - Discharge Dispostion Disposition: HOME Condition at time of disposition: Improved - Referrals Referrals: Santosh Meyer MD, MD [Staff Physician] - - Patient Instructions Printed Discharge Instructions: Asthma -- Adult Additional Instructions: Please take your usual medications. Follow up with your doctor as needed.
== END 2017-12-17 01:43 | disposition home or self-care (01) ==
LOC: JER 22:48
PROC: 3E0F7GC Introduction of Other Therapeutic Substance into Respiratory Tract, Via Natural or Artificial Opening (ICD-10-PCS; principal; 2017-12-16)
PROC: 3E0F7GC Introduction of Other Therapeutic Substance into Respiratory Tract, Via Natural or Artificial Opening (ICD-10-PCS; 2017-12-16)
DX: J45.909 Unspecified asthma, uncomplicated (principal); I25.10 Atherosclerotic heart disease of native coronary artery without angina pectoris; Z98.61 Coronary angioplasty status; I10 Essential (primary) hypertension; Z87.891 Personal history of nicotine dependence; E78.00 Pure hypercholesterolemia, unspecified; Z87.19 Personal history of other diseases of the digestive system
CPT/HCPCS: 94640; 99281-25; J7620

== ENCOUNTER 2018-10-02 15:30 | Observation (INO) | payer OTHER ==
--- NOTE | 2018-10-02 17:40 | PDOC ---
History of Present Illness - General History Source: Patient Exam Limitations: No Limitations - History of Present Illness Initial Comments: 10/02/18 17:42 Pt. is a 68 y.o. M w/ PMHx. of Asthma, COPD, [place]( 2002), diverticulosis, HTN, HLD , DM(not on medication), fistula resection (1996), and umbilical hernia repair ( 1997) presents with diarrhea since 2:30pm. Pt. ate some beef stroganoff that he felt was a bit off. Pt. lives alone and denies any sick contacts. Pt. states the stool is very loose but no completely watery and without the presence of blood. Pt. states he has had about 30 BMs since yesterday. Pt. endorses abdominal pain, dizziness, lightheadedness and chills Pt. denies fevers, nausea , vomiting, hematochezia, melena, or chest pain. Timing/Duration: 24 hours Severity: moderate Associated Symptoms: reports: cough (chronic ), fever/chills (No fevers but endorses chills), headaches, weakness. denies: chest pain, loss of appetite, nausea/vomiting, shortness of breath, syncope Aspirin Received prior to arrival: Yes: no aspirin today Beta Lilian Contraindications(Core Measure): Yes: Not Prescribed <Khalif Wilson - Last Filed: 10/02/18 18:14> <Raeann Angelo - Last Filed: 10/03/18 00:13> - General Chief Complaint: Diarrhea Stated Complaint: DIARRHEA Past History - Travel Traveled outside of the country in the last 30 days: No Close contact w/someone who was outside of country & ill: No - Past Medical History Anemia: No Asthma: Yes Cancer: No Cardiac Disorders: Yes (ASHD, [place]) CVA: No COPD: Yes CHF: No Dementia: No Diabetes: Yes GI Disorders: (COLON POLYPS,DIVERTICULOSIS,DIVERTICULITIS) Disorders: No HTN: Yes Hypercholesterolemia: Yes Liver Disease: No Seizures: No Thyroid Disease: No - Surgical History Abdominal Surgery: Yes (UMBILICAL HERNIA REPAIR,FISTULA RESECTION) Appendectomy: No Cardiac Surgery: No (CARDIAC CATHERIZATION-SEVERAL TIMES) Cholecystectomy: No Lung Surgery: No Neurologic Surgery: No Orthopedic Surgery: Yes (ELVIRA HIP SUIRGERY; ARTHROSCOPIC LEFT KNEE) - Family Disease History Family Disease History: Other: Grandparents, Father, Mother, Brother, Sister ( Entire family has Diverticulosis) - Immunization History Immunization Up to Date: Yes - Suicide/Smoking/Psychosocial Hx Smoking Status: No Smoking History: Former smoker Have you smoked in the past 12 months: No Number of Cigarettes Smoked Daily: 0 If you are a former smoker, when did you quit?: OVER 20 YRS AGO Information on smoking cessation initiated: No Hx Alcohol Use: No Drug/Substance Use Hx: No Substance Use Type: None Hx Substance Use Treatment: Yes Patient Lives Alone: Yes <Khalif Wilson - Last Filed: 10/02/18 18:14> <Raeann Angelo - Last Filed: 10/03/18 00:13> - Past Medical History Allergies/Adverse Reactions: Allergies Allergy/AdvReac Type Severity Reaction Status Date / Time No Known Drug Allergies Allergy Verified 10/02/18 15:40 Home Medications: Ambulatory Orders Amlodipine Besylate [Norvasc -] 2.5 mg PO DAILY 03/09/14 Atorvastatin Ca [Lipitor] 20 mg PO HS 03/09/14 Albuterol Sulfate [Proair Hfa -] 1 - 2 inh PO PRN PRN 05/20/14 Aspirin [ASA -] 81 mg PO DAILY #0 05/05/15 Budesonide/Formeterol Fumarate [SYMBICORT 160/4.5mcg -] 1 inh IH PRN PRN Albuterol Sulfate Inhaler - [Ventolin HFA Inhaler -] 1 - 2 inh PO BID 06/18/17 Isosorbide Mononitrate [Isosorbide Mononitrate ER] 30 mg PO DAILY 06/18/17 Etodolac 500 mg PO BID 12/17/17 Review of Systems - Review of Systems Able to Perform ROS?: Yes Is the patient limited Australian proficient: No Constitutional: Yes: Chills, Weakness. No: Fever, Loss of Appetite HEENTM: Yes: Blurred Vision, Recent change in vision (received new glasses 3 weeks ago). No: Eye Pain, Ear Pain, Throat Pain, Throat Swelling, Difficulty Swallowing Respiratory: Yes: Cough (chronic ), Shortness of Breath, Productive cough (hung colored sputum). No: Wheezing ABD/GI: Yes: Abd. Pain w/ defecation, Diarrhea (30 BMs within the last 24 hours ). No: Constipated, Difficulty Swallowing, Nausea, Poor Appetite, Vomiting, Indigestion, Tarry Stools : No: Burning, Dysuria, Discharge, Frequency, Flank Pain, Hematuria, Incontinence, Pain, Urgency Musculoskeletal: No: Symptoms Reported Neurological: Yes: Dizziness. No: Headache, Numbness, Tingling, Tremors, Weakness <Khalif Wilson - Last Filed: 10/02/18 18:14> *Physical Exam - Vital Signs Last Vital Signs Temp Pulse Resp BP Pulse Ox 98.4 F 111 H 18 121/64 95 10/02/18 15:43 10/02/18 15:43 10/02/18 15:43 10/02/18 15:43 10/02/18 15:43 - Physical Exam General Appearance: Yes: Nourished, Appropriately Dressed, Obese. No: Apparent Distress HEENT: positive: Normal Voice, Symmetrical. negative: Pharynx Normal (dry MM), Pharyngeal Erythema, Rhinorrhea, Thrush Neck: positive: Trachea midline, Supple Respiratory/Chest: positive: Normal Breath Sounds, Decreased Breath Sounds, Rales (in bibasilar ), Wheezing (mild whheezing ). negative: Lungs Clear, Respiratory Distress, Accessory Muscle Use, Labored Respiration, Rapid RR Cardiovascular: positive: Regular Rhythm, S1, S2, Tachycardia. negative: Edema , JVD, Murmur, Bradycardia Vascular Pulses: Dorsalis-Pedis (R): 2+ (radial), Doralis-Pedis (L): 2+ (radial) Gastrointestinal/Abdominal: positive: Normal Bowel Sounds, Protuberent, Other ( numerous scars from surgeries ). negative: Tender, Distended, Guarding, Rebound , Tenderness, Hernia Musculoskeletal: positive: Normal Inspection. negative: CVA Tenderness Extremity: positive: Normal Range of Motion, Pelvis Stable. negative: Tender, Calf Tenderness, Erythema, Inflammation Neurologic: positive: Fully Oriented, Alert, Normal Mood/Affect, Normal Response <Khalif Wilson - Last Filed: 10/02/18 18:14> - Vital Signs Last Vital Signs Temp Pulse Resp BP Pulse Ox 98.4 F 93 H 17 124/68 96 10/02/18 15:43 10/02/18 21:55 10/02/18 21:55 10/02/18 21:55 10/02/18 21:55 <Raeann Angelo - Last Filed: 10/03/18 00:13> Moderate Sedation - Procedure Monitoring Vital Signs: Procedure Monitoring Vital Signs Temperature 98.4 F 10/02/18 15:43 Pulse Rate 111 H 10/02/18 15:43 Respiratory Rate 18 10/02/18 15:43 Blood Pressure 121/64 10/02/18 15:43 O2 Sat by Pulse Oximetry (%) 95 10/02/18 15:43 <Khalif Wilson - Last Filed: 10/02/18 18:14> - Procedure Monitoring Vital Signs: Procedure Monitoring Vital Signs Temperature 98.4 F 10/02/18 15:43 Pulse Rate 93 H 10/02/18 21:55 Respiratory Rate 17 10/02/18 21:55 Blood Pressure 124/68 10/02/18 21:55 O2 Sat by Pulse Oximetry (%) 96 10/02/18 21:55 <Raeann Angelo - Last Filed: 10/03/18 00:13> ED Treatment Course - LABORATORY CBC & Chemistry Diagram: 10/02/18 18:19 10/02/18 18:19 - ADDITIONAL ORDERS Additional order review: Laboratory Results 10/02/18 10/02/18 10/02/18 21:50 18:19 18:19 Sodium 136 Potassium 4.5 Chloride 106 Carbon Dioxide 21 Anion Gap 9 BUN 31 H Creatinine 1.2 Creat Clearance w eGFR 59.86 Random Glucose 114 H Lactic Acid 2.1 H 2.7 H* Calcium 8.6 Total Bilirubin 0.4 AST 17 ALT 18 Alkaline Phosphatase 100 Total Protein 7.7 Albumin 3.7 10/02/18 18:19 RBC 4.01 MCV 91.2 MCHC 33.1 RDW 14.5 MPV 8.2 D Neutrophils % 86.2 H D Lymphocytes % 7.1 L D Monocytes % 6.3 Eosinophils % 0.2 Basophils % 0.2 - Medications Given in the ED: ED Medications Discontinued Medications Generic Name Dose Route Start Last Admin Trade Name Freq PRN Reason Stop Dose Admin Sodium Chloride 500 ml 10/02/18 20:55 10/02/18 21:04 Normal Saline - IV 10/02/18 20:56 500 ml ONCE ONE Administration <Raeann Angelo - Last Filed: 10/03/18 00:13> *DC/Admit/Observation/Transfer <Khalif Wilson - Last Filed: 10/02/18 18:14> - Discharge Dispostion Decision to Admit order: Yes <Raeann Angelo - Last Filed: 10/03/18 00:13> Diagnosis at time of Disposition: Lower abdominal pain, Ventral hernia - Discharge Dispostion Condition at time of disposition: Guarded
[2018-10-02] MEDS ORDERED: SODIUM CHLORIDE 1,000 ML IV STA (17:45)
--- NOTE | 2018-10-02 17:45 | PDOC ---
Attending Attestation - HPI HPI: 10/02/18 18:33 The patient is a a 68 year old male with a signficant PMH of asthma, COPD, [place]( 2002), diverticulosis, HTN, HLD, DM (not on medication), fistula resection (1996 ), and umbilical hernia repair (1997) presenting to the ER with diarrhea since 2 :30pm yesterday. Patient had beef stroganoff and noticed abdominal discomfort/ pain shortly after. Patient describes the diarrhea as loose and nonbloody. Patient states he has had about 30 bowel movements total. Patient also admits to dizziness and weakness, but no fevers or chills. Denies sick contact. Patient has only had tea today morning. He also had a colonoscopy 3 years ago, which was normal. Allergies: NKDA Surgeries: None Social History: No reported alcohol, drug or cigarette use - Physicial Exam PE: 10/02/18 18:39 ADULT PE GENERAL: The patient is in no acute distress. LUNGS: Breath sounds equal, clear to auscultation bilaterally. No wheezes, and no crackles. HEART:Regular rate and rhythm, normal S1 and S2 without murmur, rub or gallop. ABDOMEN: Soft, nontender, normoactive bowel sounds. No guarding, no rebound. No masses palpable. (+) protuberant abdomen EXTREMITIES: Normal range of motion, no edema. No clubbing or cyanosis. No erythema, or tenderness. NEUROLOGICAL: Cranial nerves II through XII grossly intact. SKIN: Warm, Dry, normal turgor, no rashes or lesions noted. - Medical Decision Making <Tarah Perdue - Last Filed: 10/02/18 18:51> - Resident Resident Name: Khalif Wilson - ED Attending Attestation I have performed the following: I have examined & evaluated the patient, The case was reviewed & discussed with the resident, I agree w/resident's findings & plan, Exceptions are as noted - Medical Decision Making 10/02/18 18:25 Mr Krishnamurthy presents to the ER with a complaint of intractable diarrhea Pt had beef stroganoff Since that time, pt has had intractable diarrhea (non bloody, non mucoid) No vomiting Pt has only had tea this morning (+) dizziness (+) weakness No fevers or chills Will do : Labs including lactate CT eval for diverticulitis IV hydration Re Assess Pt signed out to Dr. Angelo Anticipate admission <Ashley Barroso - Last Filed: 10/03/18 11:34>
[2018-10-02 18:52] LABS: BASO % 0.2 % (0-2.0); EOS % 0.2 % (0-4.5); HEMATOCRIT 36.6 % (35.4-49); HEMOGLOBIN 12.1 GM/dL (11.7-16.9); LYMPH % 7.1 % (8-40); MCH 30.2 pg (25.7-33.7); MCHC 33.1 g/dl (32.0-35.9); MEAN CELL VOLUME 91.2 fl (80-96); MEAN PLT VOLUME 8.2 fl (7.5-11.1); MONO % 6.3 % (3.8-10.2); NEUT % 86.2 % (42.8-82.8); PLATELET COUNT 354 K/MM3 (134-434); RBC 4.01 M/mm3 (4.00-5.60); RDW 14.5 % (11.9-15.9); WHITE BLOOD COUNT 5.5 K/mm3 (4.0-10.0)
[2018-10-02 19:34] LABS: ALBUMIN 3.7 g/dl (3.4-5.0); ALK PHOS 100 U/L (45-117); ANION GAP 9 MMOL/L (8-16); BILIRUBIN,TOTAL 0.4 mg/dL (0.2-1); BLOOD UREA NITROGEN 31 mg/dL (7-18); CALCIUM 8.6 mg/dL (8.5-10.1); CHLORIDE 106 mmol/L (98-107); CO2 21 mmol/L (21-32); CREATININE 1.2 mg/dL (0.55-1.3); GLUCOSE,RANDOM 114 mg/dL (74-106); POTASSIUM 4.5 mmol/L (3.5-5.1); SGOT/AST 17 U/L (15-37); SGPT/ALT 18 U/L (13-61); SODIUM 136 mmol/L (136-145); TOT PROT 7.7 g/dl (6.4-8.2)
[2018-10-02] MEDS ORDERED: SODIUM CHLORIDE 0.9% 500 ML INFUS.BAG IV ONE (20:55)
--- NOTE | 2018-10-02 23:11 | PDOC ---
*Physical Exam - Vital Signs Last Vital Signs Temp Pulse Resp BP Pulse Ox 98.4 F 93 H 17 124/68 96 10/02/18 15:43 10/02/18 21:55 10/02/18 21:55 10/02/18 21:55 10/02/18 21:55 ED Treatment Course - LABORATORY CBC & Chemistry Diagram: 10/03/18 05:49 10/03/18 18:00 - ADDITIONAL ORDERS Additional order review: Laboratory Results 10/02/18 10/02/18 10/02/18 21:50 18:19 18:19 Sodium 136 Potassium 4.5 Chloride 106 Carbon Dioxide 21 Anion Gap 9 BUN 31 H Creatinine 1.2 Creat Clearance w eGFR 59.86 Random Glucose 114 H Lactic Acid 2.1 H 2.7 H* Calcium 8.6 Total Bilirubin 0.4 AST 17 ALT 18 Alkaline Phosphatase 100 Total Protein 7.7 Albumin 3.7 10/02/18 18:19 RBC 4.01 MCV 91.2 MCHC 33.1 RDW 14.5 MPV 8.2 D Neutrophils % 86.2 H D Lymphocytes % 7.1 L D Monocytes % 6.3 Eosinophils % 0.2 Basophils % 0.2 - Medications Given in the ED: ED Medications Discontinued Medications Generic Name Dose Route Start Last Admin Trade Name Freq PRN Reason Stop Dose Admin Sodium Chloride 500 ml 10/02/18 20:55 10/02/18 21:04 Normal Saline - IV 10/02/18 20:56 500 ml ONCE ONE Administration Medical Decision Making - Medical Decision Making 10/02/18 23:10 I received pt on signout. He will be admitted for the loop of bowel that is present in his supraumbilical ventral hernia. Pt has elevated Lactic acid that is slowly improving. Pw ill be admitted for obs and for surery consult. *DC/Admit/Observation/Transfer Diagnosis at time of Disposition: Lower abdominal pain, Ventral hernia - Discharge Dispostion Disposition: HOME Condition at time of disposition: Good - Referrals - Patient Instructions - Post Discharge Activity
--- NOTE | 2018-10-02 23:58 | PN ---
Teaching Attending Note Name of Resident: Symone Rubio ATTENDING PHYSICIAN STATEMENT I saw and evaluated the patient. I reviewed the resident's note and discussed the case with the resident. I agree with the resident's findings and plan as documented. SUBJECTIVE: Patient seen and examined; please refer to resident note for further historical details. Briefly, he had diarrhea after eating a grocery store meal 30 minutes after. He had 20-30 loose brown BMs. He denies any other abnormalities. He felt lightheaded after the multiple episodes and had some chills. No recent travel, doesn't know if anyone else has the same sx as nobody in his family ate it. Hemodynamically stable and afebrile. Elevated lactate resolved after fluid bolus. Found to have a new ventral hernia on CT. He has an appetite and wants to eat. 10 sys ROS done and negative aside from HPI PMH and PSH reviewed *COPD, asthma, CAD (prior NE 2002) *Umbilical hernia repair (), diverticulosis resection () FH asked and noncontributory Socially he denies alcohol or drug abuse Medication list reviewed with resident; pending reconciliation OBJECTIVE: VS, labs, imaging reviewed NAD, AAO, resting in bed NT ND hyperactive BS, hernia is reducible. RRR s1/2 no mgr Lungs CTAB w/ sym exp Labs reviewed; CBC unremarkable with normal WBC but [employer] predominance in differential, BUN 31 with rest of BMP unremarkable, LFTs unremarkable, Lactic Acid from 2.[address] abdomen shows R supraumbilical ventral hernia that is new with a short nondilated loop of bowel ASSESSMENT AND PLAN: Patient presents with diarrhea and elevated lactate which has resolved found to have a ventral hernia; requested to admit 1) Elevated Lactate with diarrhea -Lactate resolved with hydration; likely 2/2 fluid depletion due to acute diarrheal illness -No fever, no wbc; holding off abx. -Workup for infectious diarrhea with stool cx, lactoferrin. Given the association with food may be foodborne illness. -LR@100; monitor lytes 2) Ventral Hernia -Non-incarcerated, reducible, no evidence of inflammation on CT. Risk factors include prior abdominal surgeries -Consider sgy consult inpt vs. OP 3) Diarrhea -Per above 4) Hx COPD -Continue home meds 5) Hx CAD -Continue home meds 6) Elevated BUN -Could be due to infectious diarrhea causing blood loss; check FOBT FENA -LR@100 -PRN replete -Advancing as tolerated -As tolerated Dispo: pending surgical eval Full Code
--- NOTE | 2018-10-03 02:39 | HP ---
CHIEF COMPLAINT: diarrhea PCP: HISTORY OF PRESENT ILLNESS: 68 y/o M with PMH asthma, COPD, [place] (2002), diverticulosis (w/fistula resection 1996), HTN, HLD, DM, umbilical hernia repair (1997), who presents to the ED c/o diarrhea which began 2:30pm yesterday (10/02). States that he had just eaten beef strogonoff from the grocery store when he suddenly developed rapid diarrhea. States that he had approximately 20-30 loose BM's, without blood. States that BM were brown and watery. During this time, he endorsed lightheadedness from the repeated episodes. Is unsure if others developed similar sx, as he bought this from the store and he didn't know anybody else who consumed the same. Has had subjective chills during this time. Denies N/V, recent travel, fever, SOB, chest pain or pressure, or changes in urinary function. No known sick contacts. ER course was notable for: (1) IVF (2) (3) Recent Travel: denies PAST MEDICAL HISTORY: as above PAST SURGICAL HISTORY: as above, b/l hip replacement 1992, rotator cuff repairs Social History: Smoking: denies Alcohol:denies Drugs: denies Family History: denies Allergies No Known Drug Allergies Allergy (Verified 10/02/18 15:40) HOME MEDICATIONS: Home Medications Medication Instructions Recorded Amlodipine Besylate [Norvasc -] 2.5 mg PO DAILY 03/09/14 Atorvastatin Ca [Lipitor] 20 mg PO HS 03/09/14 Albuterol Sulfate [Proair Hfa -] 1 - 2 inh PO PRN PRN 05/20/14 Aspirin [ASA -] 81 mg PO DAILY #0 05/05/15 Budesonide/Formeterol Fumarate 1 inh IH PRN PRN 05/05/15 [SYMBICORT 160/4.5mcg -] Albuterol Sulfate Inhaler - 1 - 2 inh PO BID 06/18/17 [Ventolin HFA Inhaler -] Isosorbide Mononitrate [Isosorbide 30 mg PO DAILY 06/18/17 Mononitrate ER] Etodolac 500 mg PO BID 12/17/17 REVIEW OF SYSTEMS CONSTITUTIONAL: Absent: fever, chills, diaphoresis, generalized weakness, malaise, loss of appetite, weight change HEENT: Absent: rhinorrhea, nasal congestion, throat pain, throat swelling, difficulty swallowing, mouth swelling, ear pain, eye pain, visual changes CARDIOVASCULAR: Absent: chest pain, syncope, palpitations, irregular heart rate, lightheadedness , peripheral edema RESPIRATORY: Absent: cough, shortness of breath, dyspnea with exertion, orthopnea, wheezing, stridor, hemoptysis GASTROINTESTINAL: +diarrhea Absent: abdominal pain, abdominal distension, nausea, vomiting, constipation, melena, hematochezia GENITOURINARY: Absent: dysuria, frequency, urgency, hesitancy, hematuria, flank pain, genital pain MUSCULOSKELETAL: Absent: myalgia, arthralgia, joint swelling, back pain, neck pain SKIN: Absent: rash, itching, pallor HEMATOLOGIC/IMMUNOLOGIC: Absent: easy bleeding, easy bruising, lymphadenopathy, frequent infections ENDOCRINE: Absent: unexplained weight gain, unexplained weight loss, heat intolerance, cold intolerance NEUROLOGIC: Absent: headache, focal weakness or paresthesias, dizziness, unsteady gait, seizure, mental status changes, bladder or bowel incontinence PSYCHIATRIC: Absent: anxiety, depression, suicidal or homicidal ideation, hallucinations. PHYSICAL EXAMINATION Vital Signs - 24 hr 10/02/18 10/02/18 15:43 21:55 Temperature 98.4 F Pulse Rate 111 H Pulse Rate [ 93 H Apical] Respiratory 18 17 Rate Blood Pressure 121/64 Blood Pressure 124/68 [Right Arm] O2 Sat by Pulse 95 96 Oximetry (%) GENERAL: Sitting up in bed, holding stomach. In no acute distress HEAD: Normal with no signs of trauma. EYES: Pupils equal, round and reactive to light, extraocular movements intact, sclera anicteric, conjunctiva clear. EARS, NOSE, THROAT: Ears normal, nares patent, oropharynx clear without exudates. Moist mucous membranes. NECK: Normal range of motion, supple LUNGS: Breath sounds equal, clear to auscultation bilaterally. No wheezes, and no crackles. No accessory muscle use. HEART: Regular rate and rhythm, normal S1 and S2 without murmur, rub or gallop. ABDOMEN: Soft, obese, firm, nontender, not distended, hyperactive BS LOWER EXTREMITIES: 2+ pt pulses, warm, well-perfused. No calf tenderness. No peripheral edema. NEUROLOGICAL: Cranial nerves II-XII intact. Normal speech. PSYCHIATRIC: Cooperative. Good eye contact. Appropriate mood and affect. SKIN: Warm, dry, normal turgor Laboratory Results 10/02/18 10/02/18 10/02/18 18:19 18:19 18:19 WBC 5.5 RBC 4.01 Hgb 12.1 Hct 36.6 MCV 91.2 MCH 30.2 MCHC 33.1 RDW 14.5 Plt Count 354 D MPV 8.2 D Absolute Neuts (auto) 4.7 Neutrophils % 86.2 H D Lymphocytes % 7.1 L D Monocytes % 6.3 Eosinophils % 0.2 Basophils % 0.2 Nucleated RBC % 0 Sodium 136 Potassium 4.5 Chloride 106 Carbon Dioxide 21 Anion Gap 9 BUN 31 H Creatinine 1.2 Creat Clearance w eGFR 59.86 Random Glucose 114 H Lactic Acid 2.7 H* Calcium 8.6 Total Bilirubin 0.4 AST 17 ALT 18 Alkaline Phosphatase 100 Total Protein 7.7 Albumin 3.7 CTAP: development of a small R supraumbilical ventral hernia is seen containing a short segment of a nondilated small bowel loop. remainder of exam demonstrates no obvious interval change. s/p ventral hernia repair in the umbilical region. surgical anastamoses are seen along the left colon. R inguinal hernia is seen containing the appendix. ASSESSMENT/PLAN: 68 y/o M with PMH asthma, COPD, [place] (2002), diverticulosis (w/fistula resection 1996), HTN, HLD, DM, umbilical hernia repair (1997), who presents to the ED c/o diarrhea which began 2:30pm yesterday (10/02). #Diarrhea likely 2/2 enteritis -likely viral, or 2/2 food poisoning from beef. sx began after -LR 100 cc/hr -encourage PO intake as tolerated. start with bland diet -cont to follow electrolytes as with diarrhea -stool studies: cx, shigella, FOBT, lactoferrin #Supraumbilical hernia with short segment nondilated small bowel loop -less concern for strangulation, hemodynamically stable -improved lactic almost to WNL -consider surgery consult in AM if needed. can also be done as outpatient #asthma -currently not in exacerbation -c/w ventolin nebs 1-2 puff IH BID PRN #COPD -c/w symbicort #HTN- currently controlled -c/w norvasc #HLD -c/w lipitor #DM -ISS -BGM #CAD -c/w asa, isosorbide mononitrate #F/E/N LR 100 cc/hr continue to follow reema, mike d/t diarrhea bland diet; advance as tolerated #PPX ambulation, suspect obs - short stay #Dispo med-surg obs Visit type - Emergency Visit Emergency Visit: Yes ED Registration Date: 10/03/18 Care time: The patient presented to the Emergency Department on the above date and was hospitalized for further evaluation of their emergent condition. - New Patient This patient is new to me today: Yes Date on this admission: 10/03/18 - Critical Care Critical Care patient: No
[2018-10-03] MEDS ORDERED: ALBUTEROL SO4 8 GM HFA INHALER IH PRN (03:33)
[2018-10-03] MEDS: LACTATED RINGERS SOLUTION 1,000 ML/1,000 ML INFUS.BAG IV SCH ×2 (03:42→14:14)
[2018-10-03 05:42] VITALS: BMI 40.1
[2018-10-03 06:13] LABS: BASO % 0.2 % (0-2.0); EOS % 0.5 % (0-4.5); HEMATOCRIT 37.1 % (35.4-49); HEMOGLOBIN 11.5 GM/dL (11.7-16.9); LYMPH % 15.9 % (8-40); MCH 28.7 pg (25.7-33.7); MCHC 30.9 g/dl (32.0-35.9); MEAN CELL VOLUME 92.8 fl (80-96); MEAN PLT VOLUME 7.8 fl (7.5-11.1); MONO % 9.6 % (3.8-10.2); NEUT % 73.8 % (42.8-82.8); PLATELET COUNT 321 K/MM3 (134-434); RDW 14.3 % (11.9-15.9); WHITE BLOOD COUNT 4.5 K/mm3 (4.0-10.0)
[2018-10-03] MEDS: INSULIN SLIDING SCALE (NOVOLOG) 1 VIAL SQ SCH ×3 (06:27→17:39)
[2018-10-03 06:29] LABS: ANION GAP 11 MMOL/L (8-16); BLOOD UREA NITROGEN 22 mg/dL (7-18); CHLORIDE 105 mmol/L (98-107); CO2 21 mmol/L (21-32); GLUCOSE,RANDOM 112 mg/dL (74-106); MAGNESIUM 1.9 mg/dL (1.8-2.4); PHOSPHOROUS 3.1 mg/dL (2.5-4.9); POTASSIUM 4.1 mmol/L (3.5-5.1); SODIUM 137 mmol/L (136-145)
[2018-10-03] MEDS ORDERED: ETODOLAC 500 MG PO SCH (10:00)
[2018-10-03] MEDS ORDERED: ALBUTEROL SO4 8 GM HFA INHALER IH SCH (10:00)
[2018-10-03] MEDS ORDERED: ISOSORBIDE MONONITRATE 30 MG TAB.SR.24H (FP) PO SCH (10:00)
[2018-10-03] MEDS ORDERED: PT OWN MED DRAWER 7, Y5N ONE ×2 (10:24→18:34)
[2018-10-03] MEDS: ASPIRIN 81 MG CHEWABLE TABLETS PO SCH (11:06)
[2018-10-03] MEDS: amLODIPine BESYLATE 2.5 MG TABLET (FP) PO SCH (11:06)
[2018-10-03] MEDS: BUDESONIDE/FORMETEROL FUMARATE 160/4.5 mcg INHALER IH SCH ×2 (11:07→21:13)
[2018-10-03] MEDS ORDERED: INSULIN (NOVOLOG) ASPART 100 UNITS/ML 10ML VIAL ONE ×2 (11:23→18:34)
--- NOTE | 2018-10-03 15:26 | PN ---
Teaching Attending Note Name of Resident: Symone Rubio ATTENDING PHYSICIAN STATEMENT I saw and evaluated the patient. I reviewed the resident's note and discussed the case with the resident. I agree with the resident's findings and plan as documented. Evaluated the patient today, 68 y/o M w asthma, COPD, [place] (2002), diverticulosis (w/fistula resection 1996), HTN, HLD, DM, umbilical hernia repair (1997), P/W 1 day of frequent, non bloody , not painful diarrhea after eating outside food, no other GI/, Constitutional complaints at this time . At the time of my exam he is in no distress and states that still has diarrhea but is decreasing. PhEX: Last Vital Signs Temp Pulse Resp BP Pulse Ox 98.8 F 91 H 18 160/86 95 10/03/18 05:42 10/03/18 05:42 10/03/18 05:42 10/03/18 05:42 10/03/18 05:45 in no distress MMM No ocular discharge No nasal discharge CVS:s1S2 CTAB Abd:BS+, non tender, not distended, no peritoneal signs EXt: no edema CBCD WBC 4.5 K/mm3 (4.0-10.0) 10/03/18 05:49 RBC 4.00 M/mm3 (4.00-5.60) 10/03/18 05:49 Hgb 11.5 GM/dL (11.7-16.9) L 10/03/18 05:49 Hct 37.1 % (35.4-49) 10/03/18 05:49 MCV 92.8 fl (80-96) 10/03/18 05:49 MCHC 30.9 g/dl (32.0-35.9) L 10/03/18 05:49 RDW 14.3 % (11.9-15.9) 10/03/18 05:49 Plt Count 321 K/MM3 (134-434) 10/03/18 05:49 MPV 7.8 fl (7.5-11.1) 10/03/18 05:49 CMP Sodium 137 mmol/L (136-145) 10/03/18 05:49 Potassium 4.1 mmol/L (3.5-5.1) 10/03/18 05:49 Chloride 105 mmol/L (98-107) 10/03/18 05:49 Carbon Dioxide 21 mmol/L (21-32) 10/03/18 05:49 Anion Gap 11 MMOL/L (8-16) 10/03/18 05:49 BUN 22 mg/dL (7-18) H 10/03/18 05:49 Creatinine 1.0 mg/dL (0.55-1.3) 10/03/18 05:49 Creat Clearance w eGFR > 60 (>60) 10/03/18 05:49 Random Glucose 112 mg/dL (74-106) H 10/03/18 05:49 Calcium 8.0 mg/dL (8.5-10.1) L 10/03/18 05:49 Total Bilirubin 0.4 mg/dL (0.2-1) 10/02/18 18:19 AST 17 U/L (15-37) 10/02/18 18:19 ALT 18 U/L (13-61) 10/02/18 18:19 Alkaline Phosphatase 100 U/L (45-117) 10/02/18 18:19 Total Protein 7.7 g/dl (6.4-8.2) 10/02/18 18:19 Albumin 3.7 g/dl (3.4-5.0) 10/02/18 18:19 Home Medications Medication Instructions Recorded Amlodipine Besylate [Norvasc -] 2.5 mg PO DAILY 03/09/14 Atorvastatin Ca [Lipitor] 20 mg PO HS 03/09/14 Albuterol Sulfate [Proair Hfa -] 1 - 2 inh PO PRN PRN 05/20/14 Aspirin [ASA -] 81 mg PO DAILY #0 05/05/15 Budesonide/Formeterol Fumarate 1 inh IH PRN PRN 05/05/15 [SYMBICORT 160/4.5mcg -] Albuterol Sulfate Inhaler - 1 - 2 inh PO BID 06/18/17 [Ventolin HFA Inhaler -] Isosorbide Mononitrate [Isosorbide 30 mg PO DAILY 06/18/17 Mononitrate ER] Etodolac 500 mg PO BID 12/17/17 Acetaminophen [Tylenol Arthritis] 1,300 mg PO 10/03/18 A&P: 68 y/o M with asthma, COPD, [place] (2002), diverticulosis (w/fistula resection 1996 ), HTN, HLD, DM, umbilical hernia repair (1997), who presents to the ED c/o diarrhea , negative FOBT. Diarrhea: will C/W current observation plan at this time. no need for antibiotics, no need for any other medication at this time. Asthma/COPD: will C/W home medication not in exacerbation OR/CAD/ HTN/HLD: c/w Atorvastatin, ASA, Imdure, AMLODIPINE, DM:FS and insulin sliding scale. Diet: diabetic. cardiac Dispo: will likely to be DCed home tomorrow
[2018-10-03 19:36] LABS: ANION GAP 6 MMOL/L (8-16); BLOOD UREA NITROGEN 16 mg/dL (7-18); CALCIUM 7.9 mg/dL (8.5-10.1); CHLORIDE 108 mmol/L (98-107); CO2 24 mmol/L (21-32); CREATININE 0.8 mg/dL (0.55-1.3); GLUCOSE,RANDOM 103 mg/dL (74-106); POTASSIUM 4.3 mmol/L (3.5-5.1); SODIUM 139 mmol/L (136-145)
[2018-10-03] MEDS: HEPARIN NA (PORCINE) 5,000 UNITS/ML 1ML VIAL SQ SCH (21:14)
[2018-10-03] MEDS ORDERED: ATORVASTATIN CA 20 MG TABLET (FP) PO SCH (22:00)
[2018-10-04] MEDS: LACTATED RINGERS SOLUTION 1,000 ML/1,000 ML INFUS.BAG IV SCH ×2 (00:09→06:06)
[2018-10-04] MEDS: INSULIN SLIDING SCALE (NOVOLOG) 1 VIAL SQ SCH ×3 (06:06→17:49)
--- NOTE | 2018-10-04 09:48 | PN ---
Physical Exam: SUBJECTIVE: Patient seen and examined OBJECTIVE: Vital Signs Period Temp Pulse Resp BP Sys/Sanchez Pulse Ox Last 24 Hr 98.2 F-98.4 F 80-90 18-20 130-150/62-78 96-96 GENERAL: The patient is awake, alert, and fully oriented, in no acute distress. HEAD: Normal with no signs of trauma. EYES: PERRL, extraocular movements intact, sclera anicteric, conjunctiva clear. No ptosis. ENT: Ears normal, nares patent, oropharynx clear without exudates, moist mucous membranes. NECK: Trachea midline, full range of motion, supple. LUNGS: Breath sounds equal, clear to auscultation bilaterally, no wheezes, no crackles, no accessory muscle use. HEART: Regular rate and rhythm, S1, S2 without murmur, rub or gallop. ABDOMEN: Soft, nontender, nondistended, normoactive bowel sounds, no guarding, no rebound, no hepatosplenomegaly, no masses. EXTREMITIES: 2+ pulses, warm, well-perfused, no edema. NEUROLOGICAL: Cranial nerves II through XII grossly intact. Normal speech, gait not observed. PSYCH: Normal mood, normal affect. SKIN: Warm, dry, normal turgor, no rashes or lesions noted Laboratory Results - last 24 hr 10/03/18 10/03/18 10/03/18 06:30 11:21 17:26 Sodium Potassium Chloride Carbon Dioxide Anion Gap BUN Creatinine Creat Clearance w eGFR POC Glucometer 153 104 Random Glucose Lactic Acid Calcium Stool Occult Blood Negative 10/03/18 10/03/18 10/04/18 18:00 18:00 06:05 Sodium 139 Potassium 4.3 Chloride 108 H Carbon Dioxide 24 Anion Gap 6 L BUN 16 Creatinine 0.8 Creat Clearance w eGFR > 60 POC Glucometer 125 Random Glucose 103 Lactic Acid 1.6 Calcium 7.9 L Stool Occult Blood Active Medications Generic Name Dose Route Start Last Admin Trade Name Freq PRN Reason Stop Dose Admin Albuterol Sulfate 2 puff 10/03/18 03:33 Ventolin Hfa Inhaler - IH Q4H PRN SHORT OF BREATH/WHEEZING Amlodipine Besylate 2.5 mg 10/03/18 10:00 10/03/18 11:06 Norvasc - PO 2.5 mg DAILY MELANI Administration Aspirin 81 mg 10/03/18 10:00 10/03/18 11:06 Asa - PO 81 mg DAILY MELANI Administration Atorvastatin Calcium 20 mg 10/03/18 22:00 10/03/18 21:13 Lipitor - PO 20 mg HS MELANI Administration Budesonide/Formoterol Fumarate 2 puff 10/03/18 10:00 10/03/18 21:13 Symbicort 160/4.5mcg - IH 2 puff BID MELANI Administration Heparin Sodium (Porcine) 5,000 unit 10/03/18 22:00 10/03/18 21:14 Heparin - SQ Not Given BID MELANI Insulin Aspart 1 vial 10/03/18 07:00 10/04/18 06:06 Novolog Vial Sliding Scale - SQ Not Given TIDAC [facility] Protocol Isosorbide Mononitrate 30 mg 10/04/18 10:00 Imdur - PO DAILY MELANI Non-Formulary Medication 500 mg 10/03/18 10:00 Etodolac [Etodolac] PO BID [facility] ASSESSMENT/PLAN: A&P: 68 y/o M with asthma, COPD, [place] (2002), diverticulosis (w/fistula resection 1996 ), HTN, HLD, DM, umbilical hernia repair (1997), who presents to the ED c/o diarrhea , negative FOBT. Diarrhea: is improving, will C/W current observation plan at this time. no need for antibiotics, no need for any other medication at this time. lactate also has resolved. Asthma/COPD: will C/W home medication not in exacerbation DC/CAD/ HTN/HLD: c/w Atorvastatin, ASA, Imdure, AMLODIPINE, DM:FS and insulin sliding scale. Diet: diabetic. cardiac Dispo: will likely to be DCed home this evening Visit type - Emergency Visit Emergency Visit: No - New Patient This patient is new to me today: No - Critical Care Critical Care patient: No - Discharge Referral Referred to [facility] No
--- NOTE | 2018-10-04 09:48 | DS ---
Physical Exam: SUBJECTIVE: Patient seen and examined OBJECTIVE: Vital Signs Period Temp Pulse Resp BP Sys/Sanchez Pulse Ox Last 24 Hr 98.2 F-98.4 F 80-90 18-20 130-150/62-78 96-96 PHYSICAL EXAM GENERAL: morbidly obese,s awake, alert, and fully oriented, in no acute distress. HEAD: Normal with no signs of trauma. EYES: PERRL, extraocular movements intact, sclera anicteric, conjunctiva clear. ENT: Ears normal, nares patent, oropharynx clear without exudates, moist mucous membranes. NECK: Trachea midline, full range of motion, supple. LUNGS: Breath sounds equal, clear to auscultation bilaterally, no wheezes, no crackles, no accessory muscle use. HEART: Regular rate and rhythm, S1, S2 without murmur, rub or gallop. ABDOMEN: Soft, nontender, nondistended, normoactive bowel sounds, no guarding, no rebound, no hepatosplenomegaly, no masses. EXTREMITIES: 2+ pulses, warm, well-perfused, no edema. NEUROLOGICAL: Cranial nerves II through XII grossly intact. Normal speech, gait not observed. PSYCH: Normal mood, normal affect. SKIN: Warm, dry, normal turgor, no rashes or lesions noted. LABS Laboratory Results - last 24 hr 10/03/18 10/03/18 10/03/18 06:30 11:21 17:26 Sodium Potassium Chloride Carbon Dioxide Anion Gap BUN Creatinine Creat Clearance w eGFR POC Glucometer 153 104 Random Glucose Lactic Acid Calcium Stool Occult Blood Negative 10/03/18 10/03/18 10/04/18 18:00 18:00 06:05 Sodium 139 Potassium 4.3 Chloride 108 H Carbon Dioxide 24 Anion Gap 6 L BUN 16 Creatinine 0.8 Creat Clearance w eGFR > 60 POC Glucometer 125 Random Glucose 103 Lactic Acid 1.6 Calcium 7.9 L Stool Occult Blood HOSPITAL COURSE: Date of Admission:10/03/18 Date of Discharge: 10/04/18 68 y/o M w asthma, COPD, [place] (2002), diverticulosis (w/fistula resection 1996), HTN, HLD, DM, umbilical hernia repair (1997), P/W 1 day of frequent, non bloody , not painful diarrhea after eating outside food, no other GI/, Constitutional complaints at this time .there was no need ofr infectious W/U as it was an acute diarrhea, non bloody and afebrile. FOBT was negative. patient was treated with observation and hydration and tolerated po diet well. Will DC the patient home with plan for F/U with PMD in 1 week. Minutes to complete discharge: 45 Discharge Summary Reason For Visit: VENTRAL HERNIA LOWER ABDOMINAL PAIN Current Active Problems Lower abdominal pain (Acute) Ventral hernia (Acute) Condition: Guarded - Instructions - Home Medications Comprehensive Discharge Medication List: Ambulatory Orders Amlodipine Besylate [Norvasc -] 2.5 mg PO DAILY 03/09/14 Atorvastatin Ca [Lipitor] 20 mg PO HS 03/09/14 Albuterol Sulfate [Proair Hfa -] 1 - 2 inh PO PRN PRN 05/20/14 Aspirin [ASA -] 81 mg PO DAILY #0 05/05/15 Budesonide/Formeterol Fumarate [SYMBICORT 160/4.5mcg -] 1 inh IH PRN PRN Albuterol Sulfate Inhaler - [Ventolin HFA Inhaler -] 1 - 2 inh PO BID 06/18/17 Isosorbide Mononitrate [Isosorbide Mononitrate ER] 30 mg PO DAILY 06/18/17 Etodolac 500 mg PO BID 12/17/17 Acetaminophen [Tylenol Arthritis] 1,300 mg PO 10/03/18 This patient is new to me today: No Emergency Visit: No Critical Care patient: No - Discharge Referral Referred to [facility] No
[2018-10-04] MEDS ORDERED: ISOSORBIDE MONONITRATE 30 MG TAB.SR.24H (FP) PO SCH (10:00)
[2018-10-04] MEDS: amLODIPine BESYLATE 2.5 MG TABLET (FP) PO SCH (10:16)
[2018-10-04] MEDS: ASPIRIN 81 MG CHEWABLE TABLETS PO SCH (10:16)
[2018-10-04] MEDS ORDERED: INSULIN (NOVOLOG) ASPART 100 UNITS/ML 10ML VIAL ONE (11:02)
[2018-10-04] MEDS: HEPARIN NA (PORCINE) 5,000 UNITS/ML 1ML VIAL SQ SCH (11:05)
[2018-10-04] MEDS: BUDESONIDE/FORMETEROL FUMARATE 160/4.5 mcg INHALER IH SCH (12:16)
[2018-10-04 15:38] VITALS: BP 129/70; PULSE 87; TEMP 98.2
== END 2018-10-04 19:09 | disposition home or self-care (01) ==
LOC: JER 15:30 → JERBED 10-03 00:14 → J5S 10-03 05:33
PROVIDERS: ADMIT Internal Medicine; ATTEND Internal Medicine
PROC: 3E0337Z Introduction of Electrolytic and Water Balance Substance into Peripheral Vein, Percutaneous Approach (ICD-10-PCS; principal; 2018-10-03)
PROC: 3E0F7GC Introduction of Other Therapeutic Substance into Respiratory Tract, Via Natural or Artificial Opening (ICD-10-PCS; 2018-10-03)
DX: K43.9 Ventral hernia without obstruction or gangrene (principal); R10.30 Lower abdominal pain, unspecified; I10 Essential (primary) hypertension; E78.5 Hyperlipidemia, unspecified; E11.9 Type 2 diabetes mellitus without complications; I25.2 Old myocardial infarction; I25.10 Atherosclerotic heart disease of native coronary artery without angina pectoris; R74.0 Nonspecific elevation of levels of transaminase and lactic acid dehydrogenase [LDH]; R19.7 Diarrhea, unspecified; R79.89 Other specified abnormal findings of blood chemistry; Z87.891 Personal history of nicotine dependence
CPT/HCPCS: 36415; 71045-TC-FY; 74177-TC; 80048; 80053; 82272; 82962; 83605; 83735; 84100; 85025; 87040; 87045; 87046; 87427; 94640; 96360; 96361; 99285-25; G0378; J7030

== ENCOUNTER 2019-06-02 20:58 | Emergency (ER) | payer OTHER ==
--- NOTE | 2019-06-02 21:04 | PDOC ---
Rapid Medical Evaluation Time Seen by Provider: 06/02/19 21:04 Medical Evaluation: Allergies Allergy/AdvReac Type Severity Reaction Status Date / Time No Known Drug Allergies Allergy Verified 10/02/18 15:40 06/02/19 21:04 I have performed a brief in-person evaluation of this patient. The patient presents with a chief complaint of:Urinary freq w/ weakness. No hematuria, flabk pain, n/v/f/c. H/o COPD, asthma, HTN, HLD, CAD, DM Pertinent physical exam findings:RR 24 w/ minimal wheeze on exam I have ordered the following:labs/ua/cxr The patient will proceed to the ED for further evaluation. Discharge Disposition - Diagnosis Weakness - Referrals - Patient Instructions - Post Discharge Activity
[2019-06-02 21:06] VITALS: BMI 41.3
[2019-06-02 22:25] LABS: BASO % 0.6 % (0-2.0); EOS % 0.4 % (0-4.5); HEMATOCRIT 35.8 % (35.4-49); HEMOGLOBIN 11.3 GM/dL (11.7-16.9); LYMPH % 14.8 % (8-40); MCH 29.1 pg (25.7-33.7); MCHC 31.5 g/dl (32.0-35.9); MEAN CELL VOLUME 92.5 fl (80-96); MEAN PLT VOLUME 7.7 fl (7.5-11.1); MONO % 5.2 % (3.8-10.2); PLATELET COUNT 339 K/MM3 (134-434); RBC 3.87 M/mm3 (4.00-5.60); RDW 13.9 % (11.9-15.9); WHITE BLOOD COUNT 9.5 K/mm3 (4.0-10.0)
--- NOTE | 2019-06-02 22:42 | PDOC ---
History of Present Illness - General Chief Complaint: Weakness Stated Complaint: UTI SYX Time Seen by Provider: 06/02/19 21:04 - History of Present Illness Initial Comments: Mr. Krishnamurthy is a 69 y/o male with PMH significant for ND, COPD, DM, HTN, HLD, syphilis, presenting with 2 days of dysuria and frequency. No hematuria/ discharge from penis. Reports lower abdominal pain. Reports mild chills without fever. No chest pain, no shortness of breath. Denies back pain. Past History - Past Medical History Allergies/Adverse Reactions: Allergies Allergy/AdvReac Type Severity Reaction Status Date / Time No Known Drug Allergies Allergy Verified 06/02/19 21:04 Home Medications: Ambulatory Orders Amlodipine Besylate [Norvasc -] 2.5 mg PO DAILY 03/09/14 Atorvastatin Ca [Lipitor] 20 mg PO HS 03/09/14 Albuterol Sulfate [Proair Hfa -] 1 - 2 inh PO PRN PRN 05/20/14 Aspirin [ASA -] 81 mg PO DAILY #0 05/05/15 Budesonide/Formeterol Fumarate [SYMBICORT 160/4.5mcg -] 1 inh IH PRN PRN Albuterol Sulfate Inhaler - [Ventolin HFA Inhaler -] 1 - 2 inh PO BID 06/18/17 Isosorbide Mononitrate [Isosorbide Mononitrate ER] 30 mg PO DAILY 06/18/17 Etodolac 500 mg PO BID 12/17/17 Acetaminophen [Tylenol Arthritis] 1,300 mg PO 10/03/18 Anemia: No Asthma: Yes Cancer: No Cardiac Disorders: Yes (ASHD, ND) CVA: No COPD: Yes CHF: No Dementia: No Diabetes: Yes GI Disorders: Yes (COLON POLYPS,DIVERTICULOSIS,DIVERTICULITIS) Disorders: No HTN: Yes Hypercholesterolemia: Yes Liver Disease: No Seizures: No Thyroid Disease: No - Surgical History Abdominal Surgery: Yes (UMBILICAL HERNIA REPAIR,FISTULA RESECTION) Appendectomy: No Cardiac Surgery: No (CARDIAC CATHERIZATION-SEVERAL TIMES) Cholecystectomy: No Lung Surgery: No Neurologic Surgery: No Orthopedic Surgery: Yes (ELVIRA HIP SUIRGERY; ARTHROSCOPIC LEFT KNEE) - Family Disease History Family Disease History: Other: Grandparents, Father, Mother, Brother, Sister ( Entire family has Diverticulosis) - Immunization History Immunization Up to Date: Yes - Suicide/Smoking/Psychosocial Hx Smoking Status: No Smoking History: Never smoked Have you smoked in the past 12 months: No Number of Cigarettes Smoked Daily: 0 If you are a former smoker, when did you quit?: OVER 20 YRS AGO Hx Alcohol Use: No Drug/Substance Use Hx: No Substance Use Type: None Hx Substance Use Treatment: Yes Review of Systems - Review of Systems Comments:: GENERAL/CONSTITUTIONAL: No fever. Reports chills. No weakness._ HEAD, EYES, EARS, NOSE AND THROAT: No change in vision. No change in hearing. No sore throat._ CARDIOVASCULAR: No chest pain or shortness of breath_ RESPIRATORY: Denies cough, hemoptysis_ GASTROINTESTINAL: No nausea, vomiting, diarrhea or constipation._ GENITOURINARY: Reports dysuria and frequency. Denies hematuria. Denies change in urination._ MUSCULOSKELETAL: No joint or muscle swelling or pain. No neck or back pain._ SKIN: No rash_ NEUROLOGIC: No headache, vertigo, loss of consciousness, or change in strength/ sensation._ ENDOCRINE: No increased thirst. No abnormal weight change_ HEMATOLOGIC/LYMPHATIC: No anemia, easy bleeding, or history of blood clots._ ALLERGIC/IMMUNOLOGIC: No hives or skin allergy._ *Physical Exam - Vital Signs Last Vital Signs Temp Pulse Resp BP Pulse Ox 99.2 F 90 24 H 170/83 97 06/02/19 21:04 06/02/19 21:04 06/02/19 21:04 06/02/19 21:04 06/02/19 21:04 - Physical Exam Comments: GENERAL: Awake, alert, and oriented to person/place/time, in no acute distress_ HEAD: No signs of trauma, normocephalic, atraumatic _ EYES: PERRLA, EOMI, sclera anicteric, conjunctiva clear_ ENT: Hearing grossly normal, nares patent, oropharynx clear without exudates. No uvular deviation. Moist mucosa_ NECK: Normal ROM, supple, no lymphadenopathy, JVD, or masses_ LUNGS: No distress, speaks in full sentences, clear to auscultation bilaterally _ HEART: Regular rate and rhythm, normal S1 and S2, no murmurs appreciated, peripheral pulses normal and equal bilaterally._ ABDOMEN: Soft, TTP suprapubic, normoactive bowel sounds. No guarding, no rebound. No masses_ : No penile lesions or discharge. EXTREMITIES: Normal inspection, Normal range of motion, no edema. No clubbing or cyanosis_ NEUROLOGICAL: Cranial nerves II through XII grossly intact. Normal speech, normal gait, no focal sensorimotor deficits _ SKIN: Warm, Dry, normal turgor, no rashes or lesions noted_ ED Treatment Course - LABORATORY CBC & Chemistry Diagram: 06/02/19 22:20 06/02/19 22:20 - ADDITIONAL ORDERS Additional order review: 06/02/19 22:20 RBC 3.87 L MCV 92.5 MCHC 31.5 L RDW 13.9 MPV 7.7 Neutrophils % 79.0 Lymphocytes % 14.8 Monocytes % 5.2 Eosinophils % 0.4 Basophils % 0.6 Medical Decision Making - Medical Decision Making 69M hx of ND, COPD, DM, HTN, HLD, presenting with 2 days of dysuria and frequency. No hematuria/discharge. Suprapubic TTP. Reports chills but no fever. Does not report hx of BPH or prostate disease. CBC, CMP, UA, UC, lipase. 06/03/19 0100 Labs reviewed and wnl. UA does not show signs of UTI. Patient reevaluated. VSS stable. Plan to d/c home and f/u PCP and urologist. *DC/Admit/Observation/Transfer Diagnosis at time of Disposition: Weakness - Discharge Dispostion Disposition: HOME Condition at time of disposition: Stable Decision to Admit order: No - Referrals Referrals: Winston Morton MD [Primary Care Provider] - Daniel De Anda MD [Staff Physician] - - Patient Instructions Additional Instructions: Please make an appointment with Dr. De Anda (urologist) to follow up with your symptoms of pressure on urination. Please make an appointment with Dr. Morton, your PCP, to follow up with your symptoms of pressure on urination. If you experience any new, worsening, or concerning symptoms, including inability to urinate, blood or blood clots in the urine, penile discharge, back pain, fever, nausea, vomiting, or any other concerns, please return to the emergency department. - Post Discharge Activity
--- NOTE | 2019-06-02 23:07 | PDOC ---
Documentation entered by Zaid Saba SCRIBE, acting as scribe for Harsha Muñoz MD. Harsha Muñoz MD: This documentation has been prepared by the Jayant li Daniel, SCRIBE, under my direction and personally reviewed by me in its entirety. I confirm that the documentation accurately reflects all work, treatment, procedures, and medical decision making performed by me. Attending Attestation - Resident Resident Name: Caleb Santillan - ED Attending Attestation I have performed the following: I have examined & evaluated the patient, The case was reviewed & discussed with the resident, I agree w/resident's findings & plan, Exceptions are as noted - HPI HPI: 06/02/19 22:40 The patient is a 69 year old male with a past medical history of COPD, PR, HTN, HLD, and pre diabetes here today for evaluation of dysuria. The patient reports that he has had 2 days of dysuria and increased urinary frequency. He also notes that he had chills that resolved on their own 2 days ago. Patient denies headache, lightheadedness. Denies fever. Denies chest pain, shortness of breath. Denies nausea, vomiting, diarrhea. Denies hematuria, penile discharge. Allergies: NKDA PCP: Winston Morton - Physicial Exam PE: 06/02/19 22:45 GENERAL: Awake, alert, and fully oriented, in no acute distress HEAD: No signs of trauma EYES: PERRLA, EOMI, sclera anicteric, conjunctiva clear ENT: Auricles normal inspection, hearing grossly normal, nares patent, oropharynx clear without exudates. Moist mucosa NECK: Normal ROM, supple, no lymphadenopathy, JVD, or masses LUNGS: Breath sounds equal, clear to auscultation bilaterally. No wheezes, and no crackles HEART: Regular rate and rhythm, normal S1 and S2, no murmurs, rubs or gallops ABDOMEN: Soft, nontender, normoactive bowel sounds. No guarding, no rebound. No masses EXTREMITIES: Normal range of motion, no edema. No clubbing or cyanosis. No cords, erythema, or tenderness NEUROLOGICAL: Cranial nerves II through XII grossly intact. Normal speech, normal gait SKIN: Warm, Dry, normal turgor, no rashes or lesions noted. - Medical Decision Making 08/28/19 23:07 Generalized weakness, dysuria afeb vss not tachy, well appearing non tender abdomen exam unremarkable labs ua home +/- abx pmd f/u
[2019-06-02 23:08] LABS: EPI CELLS 1.9 /HPF (0-5/HPF); HYALINE CASTS 1 /lpf (0-8); URINE APPEARANCE CLEAR; URINE BACTERIA 1.5 /hpf (NEGATIVE); URINE BILIRUBIN NEGATIVE (NEGATIVE); URINE COLOR YELLOW; URINE GLUCOSE (UA) NEGATIVE (NEGATIVE); URINE KETONE NEGATIVE (NEGATIVE); URINE LEUK ESTERASE TRACE (NEGATIVE); URINE NITRITE NEGATIVE (NEGATIVE); URINE PROTEIN NEGATIVE (NEGATIVE); URINE RBC 1 /hpf (0-4); URINE WBC 3 /hpf (0-5)
[2019-06-02 23:09] LABS: ALBUMIN 3.5 g/dl (3.4-5.0); BILIRUBIN,TOTAL 0.3 mg/dL (0.2-1); BLOOD UREA NITROGEN 19.7 mg/dL (7-18); CALCIUM 9.6 mg/dL (8.5-10.1); POTASSIUM 5.1 mmol/L (3.5-5.1); TOT PROT 7.8 g/dl (6.4-8.2)
[2019-06-02 23:38] VITALS: BP 145/77; PULSE 87; TEMP 97.9
--- NOTE | 2019-06-03 10:31 | EKG ---
Test Reason : Blood Pressure : / mmHG Vent. Rate : 087 BPM Atrial Rate : 087 BPM P-R Int : 208 ms QRS Dur : 082 ms QT Int : 352 ms P-R-T Axes : 062 -11 072 degrees QTc Int : 423 ms NORMAL SINUS RHYTHM NONSPECIFIC T WAVE ABNORMALITY ABNORMAL ECG WHEN COMPARED WITH ECG OF 04-FEB-2017 09:10, NO SIGNIFICANT CHANGE WAS FOUND Confirmed by SANDRA MILTON MD ([id number]) on 06/03/2019 10:30:59 AM Referred By: Confirmed By:SANDRA MILTON MD
== END 2019-06-03 00:09 | disposition home or self-care (01) ==
LOC: JER 20:58
DX: R53.1 Weakness (principal); I25.2 Old myocardial infarction; I10 Essential (primary) hypertension; E78.5 Hyperlipidemia, unspecified; E11.9 Type 2 diabetes mellitus without complications
CPT/HCPCS: 36415; 71046-TC-FY; 80053; 81003; 83690; 85025; 87086; 93005; 93010; 99283-25

== ENCOUNTER 2019-08-24 11:35 | Emergency (ER) | payer OTHER ==
[2019-08-24 11:40] VITALS: BP 159/81; PULSE 97; TEMP 98; BMI 41.3
--- NOTE | 2019-08-24 12:48 | PDOC ---
History of Present Illness - General Chief Complaint: Hives Stated Complaint: ALLERGIC REACTION/ HIVES Time Seen by Provider: 08/24/19 12:21 - History of Present Illness Initial Comments: 08/24/19 12:47 CHIEF COMPLAINT: itching HISTORY OF PRESENT ILLNESS: 69 yo M with significant PMH of MD, COPD (s/p multiple stents) DM, HTN, HLD, and syphilis [facility] with itchy rash x 2 days. Patient reports he has red bumps all over his body and that the itching has become so unbearable that he can not sleep. He denies any shortness of breath, chest pain, swelling to tongue, face, mouth, neck, or throat. No recent travel or sick contacts. PAST MEDICAL HISTORY: Denies past medical history FAMILY HISTORY: diverticulosis SOCIAL HISTORY: Denies tobacco, alcohol, illicit drug use. SURGICAL HISTORY: umbilical hernia repair, fistula resection, hip/knee surgery ALLERGIES: No known drug allergies REVIEW OF SYSTEMS General/Constitutional: Denies fever or chills. Denies weakness, weight change. HEENT: Denies change in vision. Denies ear pain or discharge. Denies sore throat. Cardiovascular: Denies chest pain or shortness of breath. Respiratory: Denies cough, wheezing, or hemoptysis. Gastrointestinal: Denies nausea, vomiting, diarrhea or constipation. Denies rectal bleeding. Genitourinary: Denies dysuria, frequency, or change in urination. Musculoskeletal: Denies joint or muscle swelling or pain. Denies neck or back pain. Skin: red, itchy bumps to entire body Neurologic: Denies headache, vertigo, loss of consciousness, or loss of sensation. Psychiatric: Denies depression or anxiety. PHYSICAL EXAM General Appearance: Well-appearing, appropriately dressed. No apparent distress , no intoxication. HEENT: EOMI, PERRLA, normal ENT inspection, normal voice, TMs normal, pharynx normal. No conjunctival pallor. No photophobia, scleral icterus. Neck: Supple. Trachea midline. No tenderness, rigidity, carotid bruit, stridor , lymphadenopathy, or thyromegaly. Respiratory/Chest: Lungs CTAB. No shortness of breath, chest tenderness, respiratory distress, accessory muscle use. No crackles, rales, rhonchi, stridor , wheezing, dullness Cardiovascular: RRR. S1, S2. No JVD, murmur, bradycardia, tachycardia. Vascular Pulses: Dorsalis-Pedis (R): 2+, Dorsalis-Pedis (L): 2+ Gastrointestinal/Abdominal: Normal bowel sounds. Abdomen soft, non-distended. No tenderness or rebound tenderness. No organomegaly, pulsatile mass, guarding , hernia, hepatomegaly, splenomegaly. Lymphatic: No adenopathy, tenderness. Musculoskeletal/Extremities: Normal inspection. FROM of all extremities, normal capillary refill. Pelvis Stable. No CVA tenderness. No tenderness to extremities, pedal edema, swelling, erythema or deformity. Integumentary: Erythematous, pruritic macules to b/l arms and legs Appropriate color, dry, warm. No cyanosis, erythema, jaundice Neurologic: urology physician assistant II-XII intact. Fully oriented, alert. Appropriate mood/affect. Motor strength 5/5. No appreciable EOM palsy, facial droop or sensory deficit. 08/24/19 12:48 Past History - Past Medical History Allergies/Adverse Reactions: Allergies Allergy/AdvReac Type Severity Reaction Status Date / Time No Known Drug Allergies Allergy Verified 08/24/19 11:40 Home Medications: Ambulatory Orders Amlodipine Besylate [Norvasc -] 2.5 mg PO DAILY 03/09/14 Atorvastatin Ca [Lipitor] 20 mg PO HS 03/09/14 Albuterol Sulfate [Proair Hfa -] 1 - 2 inh PO PRN PRN 05/20/14 Aspirin [ASA -] 81 mg PO DAILY #0 05/05/15 Budesonide/Formeterol Fumarate [SYMBICORT 160/4.5mcg -] 1 inh IH PRN PRN Albuterol Sulfate Inhaler - [Ventolin HFA Inhaler -] 1 - 2 inh PO BID 06/18/17 Isosorbide Mononitrate [Isosorbide Mononitrate ER] 30 mg PO DAILY 06/18/17 Etodolac 500 mg PO BID 12/17/17 Acetaminophen [Tylenol Arthritis] 1,300 mg PO 10/03/18 Sulfamethoxazole/Trimethoprim [Bactrim Ds Tablet] 1 each PO BID #14 tablet 06/04 Prednisone 20 mg PO DAILY #4 tablet 08/24/19 Anemia: No Asthma: Yes Cancer: No Cardiac Disorders: Yes (ASHD, MD) CVA: No COPD: Yes CHF: No Dementia: No Diabetes: Yes GI Disorders: Yes (COLON POLYPS,DIVERTICULOSIS,DIVERTICULITIS) Disorders: No HTN: Yes Hypercholesterolemia: Yes Liver Disease: No Seizures: No Thyroid Disease: No - Surgical History Abdominal Surgery: Yes (UMBILICAL HERNIA REPAIR,FISTULA RESECTION) Appendectomy: No Cardiac Surgery: No (CARDIAC CATHERIZATION-SEVERAL TIMES) Cholecystectomy: No Lung Surgery: No Neurologic Surgery: No Orthopedic Surgery: Yes (ELVIRA HIP SUIRGERY; ARTHROSCOPIC LEFT KNEE) - Immunization History Immunization Up to Date: Yes - Psycho Social/Smoking Cessation Hx Smoking Status: No Smoking History: Never smoked Have you smoked in the past 12 months: No Number of Cigarettes Smoked Daily: 0 If you are a former smoker, when did you quit?: OVER 20 YRS AGO Hx Alcohol Use: No Drug/Substance Use Hx: No Substance Use Type: None Hx Substance Use Treatment: Yes *Physical Exam - Vital Signs Last Vital Signs Temp Pulse Resp BP Pulse Ox 98 F 97 H 18 159/81 98 08/24/19 11:37 08/24/19 11:37 08/24/19 11:37 08/24/19 11:37 08/24/19 11:37 Medical Decision Making - Medical Decision Making 08/24/19 12:51 69 yo M with significant PMH of MD, COPD (s/p multiple stents) DM, HTN, HLD, and syphilis [facility] with itchy x 2 days. -prednisone -hydroxyzine Advised patient to take medication as prescribed and follow up with PCP within the next 2-3 days. Advised patient of signs and symptoms for return to ED. Patient verbalized understanding and agrees to plan. Discharge - Discharge Information Problems reviewed: Yes Clinical Impression/Diagnosis: Urticaria Condition: Stable Disposition: HOME - Admission No - Additional Discharge Information Prescriptions: Prednisone 20 mg PO DAILY #4 tablet - Follow up/Referral - Patient Discharge Instructions Patient Printed Discharge Instructions: DI for Rash Additional Instructions: Please take medications as prescribed and follow up with your primary care doctor in 2-3 days. If you develop any chest pain, shortness of breath, difficulty breathing, or any new or worsening symptoms, please return to the ER immediately. - Post Discharge Activity
[2019-08-24] MEDS ORDERED: hydrOXYzine PAMOATE 25 MG CAPSULE (FP) PO ONE (12:51)
[2019-08-24] MEDS ORDERED: predniSONE 10 MG TABLET (UD) PO ONE (12:54)
[2019-08-24] MEDS ORDERED: predniSONE 20 MG TABLET (UD) ONE (13:02)
== END 2019-08-24 13:50 | disposition home or self-care (01) ==
LOC: JERFT 11:35
DX: L50.9 Urticaria, unspecified (principal); I25.10 Atherosclerotic heart disease of native coronary artery without angina pectoris; I10 Essential (primary) hypertension; Z95.5 Presence of coronary angioplasty implant and graft; I25.2 Old myocardial infarction; E11.9 Type 2 diabetes mellitus without complications; J44.9 Chronic obstructive pulmonary disease, unspecified; J45.998 Other asthma; E78.00 Pure hypercholesterolemia, unspecified; Z87.19 Personal history of other diseases of the digestive system; Z86.19 Personal history of other infectious and parasitic diseases
CPT/HCPCS: 99281-25

== ENCOUNTER 2020-09-24 21:44 | Emergency (ER) | payer OTHER ==
[2020-09-24 21:50] VITALS: BMI 41.6
[2020-09-24] MEDS ORDERED: SODIUM CHLORIDE 0.9% 500 ML INFUS.BAG IV ONE (22:58)
[2020-09-25 00:02] LABS: BASO % 0.2 % (0-2.0); EOS % 1.4 % (0-4.5); HEMATOCRIT 35.9 % (35.4-49); HEMOGLOBIN 11.2 GM/dL (11.7-16.9); MCH 29.1 pg (25.7-33.7); MCHC 31.2 g/dl (32.0-35.9); MEAN CELL VOLUME 93.2 fl (80-96); MEAN PLT VOLUME 7.6 fl (7.5-11.1); MONO % 7.8 % (3.8-10.2); NEUT % 68.6 % (42.8-82.8); PLATELET COUNT 369 K/MM3 (134-434); RBC 3.85 M/mm3 (4.00-5.60); RDW 14.6 % (11.9-15.9); WHITE BLOOD COUNT 5.7 K/mm3 (4.0-10.0)
[2020-09-25 00:19] LABS: POTASSIUM 4.4 mmol/L (3.5-5.1)
[2020-09-25 00:22] LABS: ALBUMIN 3.6 g/dl (3.4-5.0); BLOOD UREA NITROGEN 12.8 mg/dL (7-18)
[2020-09-25 00:25] LABS: CREATININE 0.8 mg/dL (0.55-1.3)
[2020-09-25 00:27] LABS: BILIRUBIN,TOTAL 0.3 mg/dL (0.2-1); TOT PROT 7.8 g/dl (6.4-8.2)
[2020-09-25 01:40] LABS: URINE APPEARANCE CLEAR; URINE BILIRUBIN NEGATIVE (NEGATIVE); URINE COLOR YELLOW; URINE GLUCOSE (UA) NEGATIVE (NEGATIVE); URINE KETONE TRACE (NEGATIVE); URINE LEUK ESTERASE NEGATIVE (NEGATIVE); URINE NITRITE NEGATIVE (NEGATIVE); URINE PROTEIN TRACE (NEGATIVE)
[2020-09-25 02:41] VITALS: BP 152/84; PULSE 78; TEMP 98.6
== END 2020-09-25 02:05 | disposition home or self-care (01) ==
LOC: JER 21:44
DX: R19.7 Diarrhea, unspecified (principal)
CPT/HCPCS: 36415; 80053; 81003; 85025; 99284-25

== ENCOUNTER 2021-10-06 20:24 | Emergency (ER) | payer OTHER ==
[2021-10-06 20:57] VITALS: BP 156/82; PULSE 93; TEMP 99; BMI 41.3
== END 2021-10-06 22:08 | disposition home or self-care (01) ==
LOC: JER 20:24
DX: R19.7 Diarrhea, unspecified (principal)
CPT/HCPCS: 87804; 99283-25; C9803; U0003; U0005